=== PATIENT | female | born 1960 | race Caucasian/White ===

== ENCOUNTER 2016-07-21 06:44 | Emergency (ER) ==
[2016-07-21] MEDS ORDERED: ASPIRIN PO ONE (08:14)
[2016-07-21] MEDS ORDERED: LEVAQUIN PO ONE (08:29)
[2016-07-21] MEDS ORDERED: DUONEB (A & A) INH ONE (08:29)
--- NOTE | 2016-07-21 08:29 | EKG Report ---
Test Performed on : 07/21/2016 06:54:36 AM Test Reason : sob Blood Pressure : / mmHG Vent. Rate : 077 BPM Atrial Rate : 077 BPM P-R Int : 140 ms QRS Dur : 096 ms QT Int : 474 ms P-R-T Axes : 062 030 064 degrees QTc Int : 536 ms Normal sinus rhythm. with sinus arrhythmia. Possible Left atrial enlargement Prolonged QT Abnormal ECG When compared with ECG of 26-MAY-2016 13:14, QT has lengthened Unconfirmed Result
--- NOTE | 2016-07-21 08:35 | PROVIDER DOCUMENTATION ---
HPI-Respiratory General - General Chief Complaint: Shortness of Breath Stated Complaint: COPD,CANT BREATHE Time Seen by Provider: 07/21/16 08:09 Source: patient Allergies/Adverse Reactions: Patient Allergies Allergy/AdvReac Type Severity Reaction Status Date / Time No Known Allergies Allergy Verified 07/21/16 06:54 Home Medications: Home Medication List Medication Instructions Recorded Confirmed Last Taken Type Hydralazine [Apresoline] 50 mg PO Q8HR #90 tablet 09/26/15 06/10/16 06/10/16 09: 00 Rx Methadone 80 mg PO DAILY 05/26/16 06/10/16 06/10/16 06:00 History Sodium Bicarbonate 650 mg PO BID #60 tablet 05/30/16 06/10/16 06/06/16 09:00 Rx Hydrocortisone [Cortef] 10 mg PO QHS #30 tablet 06/04/16 06/10/16 06/09/16 21: 00 Rx Albuterol Sulfate Inhaler 2 puff INH Q6H PRN PRN #1 inhaler 06/10/16 Unknown Rx [Ventolin Hfa] Furosemide [Lasix] 40 mg PO DAILY 06/10/16 06/10/16 06/10/16 09:00 History Guaifenesin [Robitussin] 10 ml PO Q4H PRN PRN #1 bottle 07/21/16 Unknown Rx Sulfamethoxazole/Trimethoprim 1 each PO BID #14 tablet 07/21/16 Unknown Rx [Bactrim Ds Tablet] - History of Present Illness-Resp Nature of Presenting Problem: 56 year old copd'er presents complaining of dyspnea and productive cough for 1 day. denies chest pain or fever. denies any other complaints Quality of Pain: reports: none Severity in ED: reports: mild Onset/Duration: reports: 1 week ago Timing: reports: still present Cough Quality/Degree: reports: productive cough Episode Frequency: frequent episodes Current Respiratory Medication Therapy: Initiated albuterol/atrovent inhale Modifying Factors: improves with: nothing Associated Symptoms: reports: cough, short of breath Similar Symptoms Previously?: Yes Recently seen or treated by another doctor?: Yes Review of Systems - Adult - REVIEW OF SYSTEMS - ADULT Constitutional: reports: see HPI Eyes: reports: no symptoms reported Ears, Nose, Mouth & Throat: reports: no symptoms reported Cardiovascular: reports: no symptoms reported Respiratory: reports: see HPI, chronic cough, cough, dyspnea on exertion, excessive sputum production, shortness of breath Gastrointestinal: reports: no symptoms reported Genitourinary: reports: no symptoms reported Musculoskeletal: reports: no symptoms reported Integumentary: reports: no symptoms reported Neurological: reports: no symptoms reported Psychiatric: reports: no symptoms reported Endocrine: reports: no symptoms reported Hematologic/Lymphatic: reports: no symptoms reported Allergic/Immunologic: reports: no symptoms reported All Other Systems: Reviewed and Negative Past History - Adult - PAST MEDICAL HISTORY-ADULT Review of Records: reports: Old Records Reviewed, Nursing Assessment Review, Medications Reviewed, Social history reviewed & non-contributory. Major Childhood Illnesses: reports: denies history. denies: history unknown, Diptheria, Pneumococcal Disease, Polio, Rotavirus, Tetanus, Varicella, Mumps, Rubella, Hepatitis A, Hepatitis B, Hib, Influenza, Measles, Pertussis, other Cardiovascular: reports: cardiac disease, CAD, HTN, hyperlipidemia, [place]. denies : denies history, A-Fib, angina, aortic disease, arrhythmia, blood clots, congenital heart disease, CHF, heart valve problem, murmur, PAD, palpitations, pacemaker, pericardial disease, PVD, other Respiratory: reports: denies history, COPD Gastrointestinal: reports: denies history Obstetrical/Gynecological: reports: denies history Genitourinary: reports: kidney disease Musculoskeletal: reports: chronic pain (back) Neurological: reports: Seizures/Epilepsy Endocrine/Immune: reports: denies history Other Conditions: reports: denies history - PRIOR SURGERIES/PROCEDURES Surgical/Procedure History: reports: cardiac stent, BTL, tonsillectomy, orthopedic (extremity) - IMMUNIZATION STATUS Childhood Immunizations: See Nurse Assessment Flu Vaccine: See Nurse Assessment - FAMILY HISTORY Family History: reviewed, not pertinent Physical Exam-General - PHYSICAL EXAM-ADULT Initial Vital Signs Reviewed: Yes - CONSTITUTIONAL General Appearance: appears well - EYES Eyes: PERRL/EOMI - HEAD, EARS, NOSE, MOUTH & THROAT HENMT: normocephalic/atraumatic - NECK Neck: non-tender, full range of motion - RESPIRATORY Respiratory: chest non-tender, lungs clear, normal breath sounds - CARDIOVASCULAR Cardiovascular: normal peripheral pulses, regular rate, rhythm, no edema - CHEST (BREASTS) Chest/Breast: deferred - GASTROINTESTINAL (ABDOMEN) Abdominal Exam: normal bowel sounds - GENITOURINARY Female Genitalia/Pelvic Exam: deferred - LYMPHATIC Lymphatic: no adenopathy, axilla node tender - MUSCULOSKELETAL Back Exam: normal inspection - SKIN Integumentary: normal color, normal turgor, warm/dry - NEUROLOGIC 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, grossly normal, no motor/sensory deficits - PSYCHIATRIC Psych/Mental Status: normal mood/affect Departure - Departure Time of Disposition Order: 08:40 DIAGNOSIS: COPD exacerbation Disposition: HOME 01 Certified Medical Emergency: Emergent Condition: Stable Prescriptions: Sulfamethoxazole/Trimethoprim [Bactrim Ds Tablet] 1 each PO BID #14 tablet Guaifenesin [Robitussin] 10 ml PO Q4H PRN PRN #1 bottle PRN Reason: Cough Attestation - Scribe Verification/Attestation Scribe:: Bunny Perez I Scribe documention review:: This chart was documented by a scribe and accurately reflects the service the provider performed and the decisions made by the provider. - Physician/ MRALEEN Attestation Patient care was provided by Advanced Practice Provider:: Yes Advanced Practice Provider documentation review:: The Mid-level provider documentation, treatment plan and medical decision making was reviewed by the physician who agrees with all treatment and medical decision making by the MLP. The physician spent face to face time with patient:: Yes Advanced Practice Provider documentation review:: The physician spent face to face time with this patient and agrees with all MLP documentation, treatment, and medical decision making by the MLP. See provider notes for further information. Physician Attestation - Physician Attestation I, the provider, attest to the following statement:: Bunny Perez Physician documentation Attestation:: This documentation recorded by the scribe accurately reflects the service I personally performed and the decisions made by me.
[2016-07-21 09:18] LABS: MANUAL DIFF NEEDED? NO
[2016-07-21 09:22] LABS: BASO% 0.5 % (0.0-0.8); EOS# 0.16 X1000 (0.0-0.7); EOS% 3.6 % (0.0-10.0); HEMATOCRIT 36.2 % (37.0-47.0); HEMOGLOBIN 11.9 g/dL (12.0-16.0); LYMPH# 0.96 X1000 (1.2-3.4); LYMPH% 21.7 % (20.5-51.1); MCH 28.4 PG (27-31); MCHC 32.9 g/dL (33-37); MCV 86.4 FL (81-99); MONO# 0.35 X1000 (0.11-0.59); MONO% 7.9 % (1.7-9.3); MPV 12.3 FL (7.4-10.4); NEUT% 66.3 % (42.2-75.2); PLT 101 X1000 (130-400); RBC 4.19 XMIL (4.2-5.4)
--- NOTE | 2016-07-21 09:24 | Diag Imaging Result Document ---
PROCEDURE NAME: CHEST-2 VIEWS - 07/21/2016 FRONTAL AND LATERAL CHEST, TWO VIEWS: COMPARISON: 06/10/2016. FINDINGS: No definite change in the size of the nodule in the mid right lung. The heart is not enlarged. The vessels are not distended. I believe there are trace effusions. No consolidation. Minimal increased markings in the periphery of the right lung inferiorly. Mild scoliosis. IMPRESSION: 1. Stable nodule in the mid right lung. 2. Likely atelectasis although there could be a small underlying infiltrate in the right base.
[2016-07-21] MEDS ORDERED: ATROVENT HFA INH PRN (09:53)
[2016-07-21 10:08] VITALS: BP 202/95
== END 2016-07-21 10:08 | disposition home or self-care (01) ==
LOC: ED 06:44
DX: J44.1 Chronic obstructive pulmonary disease with (acute) exacerbation (principal); R06.02 Shortness of breath; R06.00 Dyspnea, unspecified; R05 Cough; R09.3 Abnormal sputum; I25.10 Atherosclerotic heart disease of native coronary artery without angina pectoris; I10 Essential (primary) hypertension; E78.5 Hyperlipidemia, unspecified; I25.2 Old myocardial infarction; G89.29 Other chronic pain; M54.9 Dorsalgia, unspecified; Z79.899 Other long term (current) drug therapy; Z95.5 Presence of coronary angioplasty implant and graft
CPT/HCPCS: 71020; 82550; 84484; 85025; 93005; 94640; 99283

== ENCOUNTER 2017-01-28 19:38 | Inpatient (IN) ==
[2017-01-28 20:29] LABS: MANUAL DIFF NEEDED? NO
[2017-01-28 20:33] LABS: BASO% 0.3 % (0.0-0.8); EOS# 0.33 X1000 (0.0-0.7); EOS% 4.8 % (0.0-10.0); HEMATOCRIT 38.8 % (37.0-47.0); HEMOGLOBIN 12.8 g/dL (12.0-16.0); IMM GRAN# 0.02 X1000 (0.0-0.04); IMM GRAN% 0.3 % (0.0-0.5); LYMPH# 1.51 X1000 (1.2-3.4); LYMPH% 21.9 % (20.5-51.1); MCH 28.6 PG (27-31); MCV 86.6 FL (81-99); MONO# 0.76 X1000 (0.11-0.59); MPV 12.2 FL (7.4-10.4); NEUT% 61.7 % (42.2-75.2); PLT 132 X1000 (130-400); RBC 4.48 XMIL (4.2-5.4)
[2017-01-28 20:37] LABS: URINE CULTURE NEEDED? NO; URINE MICRO REVIEW NEEDED? NO; URINE SOURCE CLEAN CATCH
[2017-01-28 20:40] LABS: BILIRUBIN URINE NEGATIVE (NEGATIVE); BLOOD URINE NEGATIVE (NEGATIVE); COLOR YELLOW; GLUCOSE URINE NEGATIVE (NEGATIVE); LEUKOCYTES URINE NEGATIVE (NEGATIVE); NITRITE URINE NEGATIVE (NEGATIVE); PROTEIN URINE TRACE mg/dL (NEGATIVE); SP GRAVITY URINE 1.002; TURBIDITY URINE CLEAR (CLEAR); UR EPITHELIAL CELLS <10 /HPF (<10); URINE BACTERIA NEGATIVE /HPF; URINE RBC <10 /HPF (<10); URINE WBC <10 /HPF (<10); UROBILINOGEN URINE NORMAL (NORMAL)
--- NOTE | 2017-01-28 21:00 | PROVIDER DOCUMENTATION ---
HPI-Respiratory General - General Chief Complaint: General Adult Stated Complaint: POSS. PNEUMONIA, BILAT. LEG EDEMA Time Seen by Provider: 01/28/17 20:04 Source: patient Allergies/Adverse Reactions: Patient Allergies Allergy/AdvReac Type Severity Reaction Status Date / Time No Known Allergies Allergy Verified 10/27/16 17:28 Home Medications: Home Medication List Medication Instructions Recorded Confirmed Last Taken Type Methadone 150 mg PO DAILY 05/26/16 01/28/17 01/27/17 History Amlodipine [Norvasc] 10 mg PO DAILY 10/27/16 01/28/17 01/27/17 History Clonidine [Catapres] 0.2 mg PO TID 10/27/16 01/28/17 01/27/17 History Furosemide 40 mg PO PRN PRN 10/27/16 01/28/17 01/27/17 History Hydralazine [Apresoline] 50 mg PO Q6HR 10/27/16 01/28/17 01/27/17 History Lisinopril 10 mg PO BID 10/27/16 01/28/17 01/27/17 History - History of Present Illness-Resp Nature of Presenting Problem: 56 yr old female, comes today c/o SOB, worse with exertion. SOB started 3-4 days ago, has been coughing more than usual, increased non purulent sputum production. Pt states that for the last 2 weeks her legs have been getting more swollen than usual. No other particular complaint. Review of Systems - Adult - REVIEW OF SYSTEMS - ADULT Constitutional: reports: see HPI Eyes: reports: no symptoms reported Ears, Nose, Mouth & Throat: reports: no symptoms reported Cardiovascular: reports: see HPI Respiratory: reports: see HPI Gastrointestinal: reports: no symptoms reported Integumentary: reports: no symptoms reported Past History - Adult - PAST MEDICAL HISTORY-ADULT Review of Records: reports: Nursing Assessment Review Major Childhood Illnesses: denies: history unknown, Diptheria, Mumps, Rubella, Hepatitis A, Hepatitis B, Hib, Influenza, Measles, Pertussis, Pneumococcal Disease, Polio, Rotavirus, Tetanus, Varicella, other Cardiovascular: reports: cardiac disease, CAD, HTN, hyperlipidemia, [place]. denies : denies history, A-Fib, angina, aortic disease, arrhythmia, blood clots, congenital heart disease, CHF, heart valve problem, murmur, PAD, palpitations, pacemaker, pericardial disease, PVD, other Respiratory: reports: COPD Gastrointestinal: reports: denies history Obstetrical/Gynecological: reports: denies history Genitourinary: reports: kidney disease Musculoskeletal: reports: chronic pain (back) Neurological: reports: Seizures/Epilepsy Endocrine/Immune: reports: denies history Other Conditions: reports: denies history - PRIOR SURGERIES/PROCEDURES Surgical/Procedure History: reports: cardiac stent, BTL, tonsillectomy, orthopedic (extremity) - IMMUNIZATION STATUS Childhood Immunizations: See Nurse Assessment Flu Vaccine: See Nurse Assessment - FAMILY HISTORY Family History: reviewed, not pertinent Physical Exam-General - CONSTITUTIONAL General Appearance: mild distress - EYES Eyes: PERRL/EOMI - HEAD, EARS, NOSE, MOUTH & THROAT HENMT: normocephalic/atraumatic, moist mucous membranes - NECK Neck: non-tender - RESPIRATORY Respiratory: chest non-tender, crackles, rhonchi - CARDIOVASCULAR Cardiovascular: regular rate, rhythm, other (Peripheral edema noted.) - GASTROINTESTINAL (ABDOMEN) Abdominal Exam: non tender, soft, no organomegaly - LYMPHATIC Lymphatic: no adenopathy - MUSCULOSKELETAL Back Exam: normal inspection Extremity: pedal edema - SKIN Integumentary: normal color, normal turgor - NEUROLOGIC Neurologic: grossly normal, no motor/sensory deficits - PSYCHIATRIC Psych/Mental Status: normal mood/affect, normal thought content, oriented x 3 Progress - PLAN OF CARE/RESULTS Progress/Plan/Lab Results: Vital Signs - 8 hr 01/28/17 19:45 01/28/17 22:11 Temperature 97.7 F Pulse Rate 64 63 Respiratory Rate 20 Blood Pressure 130/65 117/72 O2 Sat by Pulse Oximetry 100 96 Laboratory Results - last 24 hr 01/28/17 01/28/17 01/28/17 20:10 20:10 20:10 WBC 6.88 RBC 4.48 Hgb 12.8 Hct 38.8 MCV 86.6 MCH 28.6 MCHC 33.0 RDW Std Deviation 16.3 H Plt Count 132 MPV 12.2 H Immature Gran % (Auto) 0.3 Neut % (Auto) 61.7 Lymph % (Auto) 21.9 [place] % (Auto) 11.0 H Eos % (Auto) 4.8 Baso % (Auto) 0.3 Immature Gran # (Auto) 0.02 Neut # (Auto) 4.24 Lymph # (Auto) 1.51 [place] # (Auto) 0.76 H Eos # (Auto) 0.33 Baso # (Auto) 0.02 Sodium 143 Potassium 4.7 Chloride 106 Carbon Dioxide 18 L Anion Gap 19 BUN 42 H Creatinine 4.1 H Estimated GFR/1.73 m2 11 BUN/Creatinine Ratio 10 Glucose 94 Calculated Osmolality 295 Calcium 8.0 L Total Bilirubin 0.43 AST 33 H ALT 9 L Alkaline Phosphatase 104 Zbf-F-Kcfeeltfbqt Pept 1604 H Total Protein 6.3 Albumin 4.0 Globulin 2.3 Albumin/Globulin Ratio 1.7 Urine Source Urine Color Urine Turbidity Urine pH Ur Specific Sheridan Urine Protein Ur Glucose (Stick) Ur Ketones (Stick) Urine Blood Urine Nitrite Urine Bilirubin Urobilinogen Dipstick Urine Leukocytes Urine WBC (Auto) Urine RBC (Auto) U Epithel Cells (Auto) Urine Bacteria (Auto) 01/28/17 20:25 WBC RBC Hgb Hct MCV MCH MCHC RDW Std Deviation Plt Count MPV Immature Gran % (Auto) Neut % (Auto) Lymph % (Auto) [place] % (Auto) Eos % (Auto) Baso % (Auto) Immature Gran # (Auto) Neut # (Auto) Lymph # (Auto) [place] # (Auto) Eos # (Auto) Baso # (Auto) Sodium Potassium Chloride Carbon Dioxide Anion Gap BUN Creatinine Estimated GFR/1.73 m2 BUN/Creatinine Ratio Glucose Calculated Osmolality Calcium Total Bilirubin AST ALT Alkaline Phosphatase Pus-W-Kycptdskovu Pept Total Protein Albumin Globulin Albumin/Globulin Ratio Urine Source CLEAN CATCH Urine Color YELLOW Urine Turbidity CLEAR Urine pH 5.0 Ur Specific [place] 1.002 Urine Protein TRACE A Ur Glucose (Stick) NEGATIVE Ur Ketones (Stick) NEGATIVE Urine Blood NEGATIVE Urine Nitrite NEGATIVE Urine Bilirubin NEGATIVE Urobilinogen Dipstick NORMAL Urine Leukocytes NEGATIVE Urine WBC (Auto) <10 Urine RBC (Auto) <10 U Epithel Cells (Auto) <10 Urine Bacteria (Auto) NEGATIVE Orders Category Date Time Status cxr [CHEST-PORTABLE] [RAD] Stat Exams 01/28/17 20:11 Completed BNP [PRO B-NATRIURETIC PEPTIDE] Stat Lab 01/28/17 20:10 Completed CBC WITH DIFF [HEME] Stat Lab 01/28/17 20:10 Completed CMP [COMPREHENSIVE METABOLIC PANEL] [CHEM] Stat Lab 01/28/17 20:10 Completed UA NIMS W/REFLEX CULT [URINALYSIS] Stat Lab 01/28/17 20:25 Completed Oxygen Device Stat Oth 01/28/17 20:22 Active EKG [EKG] Stat Ther 01/28/17 19:49 Ordered Patient does have CKD and looks to have decompensated CHF with BNP elevated to around 1600. I have talked with Dr. Johnson the hospitalist and he kindly agrees to admit. Dr. Last is her Size Painter who may be called tomorrow by the Hospitalist. Result Diagrams: 01/28/17 20:10 01/28/17 20:10 Departure - Departure Date of Disposition Decision: 01/28/17 Time of Disposition Decision: 22:41 DIAGNOSIS: CHF (congestive heart failure), CKD (chronic kidney disease), COPD (chronic obstructive pulmonary disease) with emphysema Disposition: ADMITTED INPATIENT 09 Certified Medical Emergency: Emergent Condition: Stable Referrals and Follow-Ups: None,PCP [Primary Care Provider] - Discharge Education: Smoking, You Can Quit, [id number] - Critical Care Note This patient required my direct & personal management of CC.: No Attestation - Physician/ MARLEEN Attestation Patient care was provided by Advanced Practice Provider:: No The physician spent face to face time with patient:: Yes Advanced Practice Provider documentation review:: Supervising physician onsite and consulted in the evaluation and care of this patient. The physician did have a face to face encounter with the patient.
[2017-01-28 21:15] LABS: POTASSIUM 4.7 mmol/L (3.5-5.1); TOTAL BILIRUBIN 0.43 mg/dL (0.20-1.00); TOTAL PROTEIN 6.3 g/dL (6.3-8.3)
--- NOTE | 2017-01-28 21:31 | Diag Imaging Result Doc PS360 ---
EXAM: CHEST-PORTABLE INDICATION: sob TECHNIQUE: One view COMPARISON: 10/27/2016 FINDINGS: There is a stable calcified granuloma in the right midlung zone peripherally. The lungs are grossly clear, otherwise. There is no discrete pleural fluid collection or pneumothorax. The cardiomediastinal silhouette and central vasculature are grossly unremarkable. IMPRESSION: No evidence of acute pathology by plain radiograph. Electronically signed by Olivier Andrews 01/28/2017 9:28 PM
[2017-01-28] MEDS ORDERED: MORPHINE IV PRN (23:17)
[2017-01-29] MEDS ORDERED: DUONEB (A & A) INH PRN (00:12)
[2017-01-29] MEDS ORDERED: LASIX PO PRN (00:12)
--- NOTE | 2017-01-29 00:47 | HISTORY AND PHYSICAL ---
PRIMARY CARE PHYSICIAN: None. CHIEF COMPLAINT: Shortness of breath x2 days. HISTORY OF PRESENTING ILLNESS: A 56-year-old female with a history of chronic kidney disease, hypertension, COPD and cornary disease who had presented to the emergency department with 2 days history of worsening shortness of breath. The patient states that she could not catch her breath at times and she seemed to be worsening. She was evaluated in the emergency department. She was somewhat dyspneic and due to her presenting symptoms it was thought that she would need admission for further management. At the time of my examination, she had denied any headache, fever, chills, chest pain, hemoptysis, melena, but complained of shortness of breath and her leg swelling. PAST MEDICAL HISTORY: Chronic kidney disease, hypertension, COPD, CVA, coronary artery disease. PAST SURGICAL HISTORY: Coronary stent, left knee surgery. ALLERGIES: No known drug allergies. CURRENT MEDICATIONS: As listed in the medication reconciliation sheet. SOCIAL HISTORY: An 80 pack-year history of smoking. Denies any history of alcohol or illicit drug use. FAMILY HISTORY: Positive for coronary artery disease in father. REVIEW OF SYSTEMS: Twelve point systems as listed in HPI. Other systems negative. PHYSICAL EXAMINATION: GENERAL: Cooperative, friendly female. She is resting more comfortably now. VITAL SIGNS: Temperature 97.7 degrees, pulse 64, respirations 20, blood pressure 130/65. HEENT: Atraumatic, normocephalic. Extraocular movements intact. PERRLA. NECK: No masses. CHEST: Bibasilar rales. CARDIOVASCULAR: Regular rate and rhythm. S1, S2. ABDOMEN: Soft, obese, positive bowel sounds. EXTREMITIES: +1 edema. NEUROLOGIC: She is awake, alert, oriented x3. GENITOURINARY: No bladder distention. SKIN: Warm. LABORATORIES AND STUDIES: UA is nitrite negative. Sodium 143, potassium 4.7, chloride 106, CO2 is 18, BUN is 42, creatinine 4.1, glucose is 94. ProBNP is 1604. WBC 6.88, hemoglobin 12.8, hematocrit 38.8, platelets are 132,000. ASSESSMENT: This is a 56-year-old female with a history of chronic kidney disease, hypertension, chronic obstructive pulmonary disease and coronary artery disease, who had presented to the emergency department with 2 days history of worsening shortness of breath. She was evaluated in the emergency department and she was moderately dyspneic and due to her presenting symptoms she will need admission for further management. 1. Suspected acute chronic obstructive pulmonary disease exacerbation. 2. Ongoing tobacco abuse. 3. Chronic kidney disease. 4. Hypertension. PLAN: 1. We will admit patient to medical floor with telemetry. 2. We will start patient on IV Solu-Medrol, IV antibiotics and DuoNebs. 3. We will consult Nephrology for her renal failure. 4. Restart her home medications. 5. Monitor blood pressure closely. 6. We will put patient on DVT prophylaxis with SCD. 7. We will continue to follow and reassess. cc: Matheus Johnson MD MTDD
[2017-01-29] MEDS: LEVAQUIN 500 MG/D5W 500 MG/100 ML IVPB IV SCH (01:20)
[2017-01-29] MEDS: APRESOLINE PO SCH ×4 (01:20→20:18)
[2017-01-29] MEDS: SOLU-MEDROL IV SCH ×3 (01:20→16:00)
[2017-01-29 07:21] LABS: BASO% 0.2 % (0.0-0.8); EOS# 0.12 X1000 (0.0-0.7); EOS% 2.1 % (0.0-10.0); HEMATOCRIT 38.4 % (37.0-47.0); HEMOGLOBIN 12.5 g/dL (12.0-16.0); LYMPH# 0.56 X1000 (1.2-3.4); LYMPH% 9.7 % (20.5-51.1); MANUAL DIFF NEEDED? YES; MCH 28.1 PG (27-31); MCHC 32.6 g/dL (33-37); MCV 86.3 FL (81-99); MONO# 0.14 X1000 (0.11-0.59); MONO% 2.4 % (1.7-9.3); MPV 11.9 FL (7.4-10.4); NEUT% 85.6 % (42.2-75.2); PLT 108 X1000 (130-400); RBC 4.45 XMIL (4.2-5.4)
[2017-01-29 07:34] LABS: CALCIUM 7.6 mg/dL (8.8-10.2); POTASSIUM 4.1 mmol/L (3.5-5.1)
[2017-01-29] MEDS: CATAPRES PO SCH ×3 (07:59→20:18)
[2017-01-29 08:00] LABS: EOS 2 % (1-10); LARGE PLATELETS OCCASIONAL; LYMPHS 8 % (21-51)
[2017-01-29] MEDS: PRINIVIL PO SCH ×2 (08:00→20:18)
[2017-01-29] MEDS: NORVASC PO SCH (08:00)
--- NOTE | 2017-01-29 14:20 | Diag Imaging Result Doc PS360 ---
EXAM: CT THORAX W/O CONTRAST INDICATION: pna suspected TECHNIQUE: Dose reduction protocol was used. COMPARISON: 05/28/2016 FINDINGS: There is a large calcified granuloma in the right upper lobe, stable. There are a few other tiny noncalcified nodules bilaterally that are stable and statistically likely represent noncalcified granulomata. At the lung bases, there is mild scarring and/or subsegmental atelectasis. Superimposed infection is possible at the right lung base. The lungs are grossly clear, otherwise. There is no pleural fluid collection and no pneumothorax. The heart is not enlarged. There are calcified right hilar lymph nodes indicating prior granulomatous disease. There is no evidence of significant lymphadenopathy, otherwise. Limited views of the upper abdomen reveal a prominent spleen. There is a calcified stone in the lumen of the gallbladder. The gallbladder is contracted. The gallbladder wall appears thickened but this is probably, at least in part, due to contraction. Please correlate clinically. IMPRESSION: 1.Mild subsegmental atelectasis and/or scarring at the lung bases with possible superimposed infection at the right lung base. 2.Thickened gallbladder wall with a luminal gallstone. However, this thickening may be due to gallbladder contraction. Please correlate clinically. 3.Splenomegaly. 4.Other incidental/nonacute findings detailed above. Electronically signed by Olivier Andrews 01/29/2017 2:18 PM
[2017-01-29] MEDS: MORPHINE IV PRN ×2 (14:31→20:18)
[2017-01-29] MEDS: DUONEB (A & A) INH SCH ×3 (15:29→22:55)
--- NOTE | 2017-01-29 15:30 | PROGRESS NOTE ---
DATE: 01/29/2017 SUBJECTIVE: Patient reports feeling better. Reports still having some shortness of breath. OBJECTIVE: Vital signs: Temperature 97.7 degrees, heart rate 64, respiratory rate 20, blood pressure 132/72, O2 saturation 99% L nasal cannula. General: This is a 56- year-old female lying in bed, in no acute distress. HEENT: Head is normocephalic, atraumatic. Neck: Supple. No JVD noted. No carotid bruit. No lymphadenopathy. Cardiovascular: S1, S2 heard. No murmurs, gallops, or rubs. Regular rate and rhythm. Respiratory: Clear bilaterally. There are some bibasilar rales. Patient is not using any accessory muscles or having work of breathing. Abdomen: Soft, obese, nontender to palpation. Bowel sounds present. No organomegaly. Extremities: No clubbing, cyanosis there is 1+ pitting edema in both lower extremities. Peripheral pulses present in both legs. Neurological: Patient is alert and oriented x3. Able to move 4 extremities. LABORATORY DATA: The CBC is remarkable for platelets 102,000 and BMP shows creatinine 3.4. ASSESSMENT AND PLAN: 1. Chronic obstructive pulmonary disease exacerbation. Patient reports feeling a little bit better, although, mildly short of breath. Currently this patient is on breathing treatments with DuoNeb every 4 hours. At this point, we are going to continue with the same management. Because of history of smoking for many years. I prefer to go ahead and do a CT of the chest without contrast to see if there is any lung mass. 2. Acute on chronic kidney disease. The patient reports that she has been followed by Dr. Last. I do not know the baseline creatinine, but from yesterday when she was admitted, creatinine was 4.1, today it is 3.4. We are going to continue with the same management. 3. Hypertension blood pressure is under control. We will continue with the same management. 4. Ongoing tobacco abuse. Patient has been explained the long-term consequence of smoking. Patient acknowledged understanding. cc: Pravin Galloway MD [facility]
[2017-01-30] MEDS: LEVAQUIN 500 MG/D5W 500 MG/100 ML IVPB IV SCH (01:24)
[2017-01-30] MEDS: SOLU-MEDROL IV SCH ×3 (01:24→15:16)
[2017-01-30] MEDS: APRESOLINE PO SCH ×4 (01:25→20:05)
[2017-01-30] MEDS: DUONEB (A & A) INH SCH ×6 (03:20→23:35)
--- NOTE | 2017-01-30 06:17 | EKG Report ---
Test Performed on : 01/28/2017 7:56:00 PM Test Reason : edema in legs/sob Blood Pressure : / mmHG Vent. Rate : 060 BPM Atrial Rate : 060 BPM P-R Int : 134 ms QRS Dur : 104 ms QT Int : 470 ms P-R-T Axes : 000 117 136 degrees QTc Int : 470 ms Normal sinus rhythm. Right axis deviation Abnormal ECG When compared with ECG of 27-OCT-2016 17:59, Sinus rhythm. has replaced Junctional rhythm. QRS axis shifted right Nonspecific T wave abnormality now evident in Inferior leads Nonspecific T wave abnormality now evident in Lateral leads Unconfirmed Result
[2017-01-30 06:41] LABS: HEMATOCRIT 38.3 % (37.0-47.0); HEMOGLOBIN 12.7 g/dL (12.0-16.0); IMM GRAN# 0.02 X1000 (0.0-0.04); IMM GRAN% 0.2 % (0.0-0.5); LYMPH# 0.42 X1000 (1.2-3.4); MANUAL DIFF NEEDED? YES; MCHC 33.2 g/dL (33-37); MCV 84.5 FL (81-99); MONO# 0.21 X1000 (0.11-0.59); MONO% 2.5 % (1.7-9.3); MPV 11.7 FL (7.4-10.4); NEUT% 92.3 % (42.2-75.2); PLT 108 X1000 (130-400); RBC 4.53 XMIL (4.2-5.4)
[2017-01-30 07:03] LABS: CALCIUM 8.1 mg/dL (8.8-10.2); POTASSIUM 4.3 mmol/L (3.5-5.1)
[2017-01-30 07:17] LABS: BANDS 2 % (0-1); LYMPHS 2 % (21-51); MONO 2 % (1-9)
[2017-01-30] MEDS: NORVASC PO SCH (08:16)
[2017-01-30] MEDS: CATAPRES PO SCH ×3 (08:16→20:05)
[2017-01-30] MEDS: PRINIVIL PO SCH ×2 (08:16→20:05)
[2017-01-30] MEDS: MORPHINE IV PRN (08:22)
[2017-01-30] MEDS: ROCEPHIN 1 GM in NS 50 ML IV SCH (11:49)
--- NOTE | 2017-01-30 14:54 | PROGRESS NOTE ---
DATE: 01/30/2017 SUBJECTIVE: Patient reports she is still feeling mildly short of breath. Denies any fever or chills. OBJECTIVE: Vital Signs: Temperature 97.6 degrees, heart rate 62, respiratory rate 17, blood pressure 1 /57, O2 saturation 93% 2 L nasal cannula. General Examination: This is a 56- year-old, female lying in bed, in no acute distress, looking older than her age. HEENT: Head is normocephalic, atraumatic. Neck: Supple. No JVD noted. No carotid bruits. Cardiovascular: S1, S2 heard. No murmurs, gallops, or rubs. Regular rate and rhythm. Respiratory: Clear bilaterally to auscultation. Some bibasilar crackles. Patient is not using any accessory muscles or having work of breathing. Abdomen: Soft, nontender to palpation. Bowel sounds present. No organomegaly. Extremities: No clubbing, cyanosis, or edema. Peripheral pulses present in both legs. Neurological: Patient alert and oriented x3. Moves 4 extremities. LABORATORY DATA: Reviewed. ASSESSMENT AND PLAN: 1. Chronic obstructive pulmonary disease exacerbation. Patient is feeling a little bit short of breath and is still requiring 3 L of oxygen by nasal cannula. At this point, we are going to continue with DuoNeb every 4 hours. We have checked chest CT which basically showed possible superimposed infection in the right lung base. Patient currently is on ceftriaxone and levofloxacin. We are going to continue with the same management. We are going to continue with breathing treatments as well. 2. Acute on chronic kidney disease. Creatinine is 3.4. Evaluated by Dr. Last. Apparently as per patient, he mentioned to her that her creatinine is within her baseline. We will continue to BMP. 3. Hypertension. Blood pressure is under control. We will continue with the same management. 4. Ongoing tobacco abuse. Patient advised to stop smoking for more than 3 minutes. cc: Pravin Galloway MD
[2017-01-30] MEDS ORDERED: MORPHINE IV PRN (15:31)
--- NOTE | 2017-01-30 16:15 | CONSULTATION ---
DATE OF CONSULTATION: 01/30/2017 REASON FOR ADMISSION: Shortness of breath x2 days. REASON FOR CONSULT: Acute kidney injury on chronic kidney disease stage 4 and assistance with medical management. HISTORY OF PRESENT ILLNESS: Ms. Mead is a 56-year-old white female who is known to our outpatient services for chronic kidney disease stage 4b. Her baseline creatinine was 2.9 when last seen in June of 2016. This has been stable with no changes. She is due to be seen in our office in the next 2 weeks. Patient states that she has a history of hypertension and COPD. She presented to the emergency department after having 2 days of worsening shortness of breath. She denies chest pain. She was dyspneic with exertion and at rest. There were no alleviating factors. She did deny fever or chills. No nausea, vomiting, no diarrhea. No hemoptysis or melena. She does have some lower extremity leg swelling. PAST MEDICAL HISTORY: Chronic kidney disease stage 4. Hypertension. COPD. CVA. Coronary artery disease. Anemia of chronic disease. Osteodystrophy of chronic disease. PAST SURGICAL HISTORY: Coronary artery stents. Left knee surgery. SOCIAL HISTORY: She is an 13-xwnn-kgu-year history of smoking. SHE continues to smoke at this time. Denies any alcohol or illicit drug use. She lives alone with family who are attentive to her care. FAMILY HISTORY: Noncontributory. ALLERGIES: No known drug allergies. HOME MEDICATIONS: Methadone, lisinopril, furosemide, Norvasc, Catapres, Apresoline. PHYSICAL EXAMINATION: Vital signs: Her most recent vital signs, temperature 97.5 degrees, blood pressure 135/69, heart rate 65, respirations 20. She is on 3 L nasal cannula. Last recorded saturation 96%. She has had 882 and 502 out per void. General: This is a 56- year-old white female. She is sitting up in bed. She is receiving a breathing treatment. Skin: Warm and dry. She is in no acute distress. HEENT: Normocephalic, atraumatic. Conjunctivae pink. She has YAHIR. Mucous membranes are dry. Neck: Supple. Trachea midline. No JVD. Cardiovascular: Regular rate and rhythm without murmur or gallop. Lungs: Clear to auscultation anterior. She has diminished breath sounds to the bases. She remains on O2. Abdomen: Round , soft, nontender. Positive bowel sounds. Genitourinary: Not inspected. Adequate void. Extremities: She continues with 1+ lower extremity edema. No clubbing or cyanosis. Neurological : She is alert and oriented x3. LABORATORIES: Sodium 136, potassium 4.3, chloride 103, CO2 19, BUN 51, creatinine 3.4, glucose 150. Anion gap 14, calcium 8.1. White count 8.41, hemoglobin 12.7, hematocrit 38.2, with a platelet count of 108,000. ASSESSMENT AND PLAN: 1. Acute kidney injury on chronic kidney disease stage 4b. The patient's baseline creatinine is 2.9. Creatinine today is at 3.4, BUN of 51. More than likely, this is secondary to her exacerbation of her COPD. She is breathing better at this time. No indications for intervention. 2. Electrolytes. These are stable. 3. Acid-base balance. This remains stable with new-onset metabolic acidosis. We will continue to monitor. 4. Anemia. This is at target. 5. COPD exacerbation. Patient continues on breathing treatments per primary care. I would to thank you for allowing us to follow with this patient. Dictated by DUNCAN Diaz for Jaguar Last MD Patient seen, data reviewed, discussed with Florentin Hutton on 01/30/17. I agree with the above assessment and plan of care. cc: DUNCAN Diaz MD [facility]
[2017-01-30] MEDS ORDERED: METHADONE PO ONE (21:44)
[2017-01-30] MEDS: NICODERM PATCH TD SCH (22:11)
[2017-01-31] MEDS: SOLU-MEDROL IV SCH ×3 (00:46→16:09)
[2017-01-31] MEDS: LEVAQUIN 500 MG/D5W 500 MG/100 ML IVPB IV SCH (02:35)
[2017-01-31] MEDS: APRESOLINE PO SCH ×4 (02:46→21:48)
[2017-01-31] MEDS: DUONEB (A & A) INH SCH ×6 (03:36→23:20)
[2017-01-31 06:43] LABS: EOS# 0.01 X1000 (0.0-0.7); EOS% 0.1 % (0.0-10.0); HEMATOCRIT 39.4 % (37.0-47.0); HEMOGLOBIN 13.1 g/dL (12.0-16.0); LYMPH# 0.46 X1000 (1.2-3.4); LYMPH% 4.2 % (20.5-51.1); MANUAL DIFF NEEDED? YES; MCH 28.2 PG (27-31); MCHC 33.2 g/dL (33-37); MCV 84.9 FL (81-99); MONO# 0.29 X1000 (0.11-0.59); MONO% 2.7 % (1.7-9.3); MPV 12.3 FL (7.4-10.4); PLT 130 X1000 (130-400); RBC 4.64 XMIL (4.2-5.4)
[2017-01-31 06:56] LABS: CALCIUM 7.7 mg/dL (8.8-10.2); POTASSIUM 4.3 mmol/L (3.5-5.1)
[2017-01-31 07:15] LABS: BANDS 1 % (0-1); LYMPHS 8 % (21-51)
[2017-01-31] MEDS: METHADONE PO SCH (08:27)
[2017-01-31] MEDS: NICODERM PATCH TD SCH (08:27)
[2017-01-31] MEDS: CATAPRES PO SCH ×3 (08:27→16:09)
[2017-01-31] MEDS: PRINIVIL PO SCH ×2 (08:27→21:48)
[2017-01-31] MEDS: NORVASC PO SCH (08:27)
[2017-01-31] MEDS ORDERED: NICODERM PATCH TD SCH (09:00)
--- NOTE | 2017-01-31 10:45 | PROGRESS NOTE ---
DATE: 01/31/2017 SUBJECTIVE: This patient states that she is still feeling a little bit short of breath, mostly when she has some physical activity. She denies fever, nausea, vomiting, diarrhea, or constipation. OBJECTIVE: Vital Signs: Temperature 97.4 degrees, pulse 80, respiratory rate 16, blood pressure 135/65, oxygen saturation 96% on 2 L of nasal cannula. HEENT: Head normocephalic. No trauma. PERRLA. Neck: Supple. No JVD. No masses. Central trachea. Chest: Decreased breath sounds globally with prolonged expiratory phase. Scattered wheezing, expiatory as well. Mild rhonchi at the level of the lung bases. Abdomen: Soft, nontender, nondistended. No hepatosplenomegaly. Extremities: No edema. No clubbing. No cyanosis. Neurological Examination: The patient is alert and oriented x3. No focal deficits. Laboratory: WBC 10.9, hemoglobin 13.1, hematocrit 39.4, platelets 130,000. Sodium 139, potassium 4.3, chloride 103, bicarbonate 19, BUN 64, creatinine 3.3, glucose 128, calcium 7.7. ASSESSMENT AND PLAN: 1. Chronic obstructive pulmonary disease exacerbation. This patient is feeling a little bit short of breath. Now, she is requiring 2 L of oxygen instead of 3. She is still getting tired with physical activity. Continue with the same management. 2. Right lower lung pneumonia. Continue with ceftriaxone and levofloxacin. As per the patient, she is not using oxygen at home. 3. Acute on chronic kidney disease. BUN is a little bit worse and creatinine is about the same. Nephrology department is following this patient. We will continue to follow their recommendations. 4. Hypertension, stable. Continue with the same management. 5. Ongoing tobacco abuse. This patient has been highly advised against tobacco abuse. I will continue with daily cessation education. cc: Santino Ayala MD
[2017-01-31] MEDS: ROCEPHIN 1 GM in NS 50 ML IV SCH (11:30)
--- NOTE | 2017-01-31 14:19 | PROGRESS NOTE ---
DATE: 01/31/2017 TIME SEEN: 0840. SUBJECTIVE: Ms. Mead is resting quietly in bed. She denies any pain. No increased work of breathing. She is sitting up eating her breakfast. States that her breathing is doing better. OBJECTIVE: Her most recent vital signs, temperature 97.6 degrees, blood pressure 124/59, heart rate 88, respirations 16. nasal cannula. Last recorded saturation is 96%. She has had 780 in. She has had 0 recorded out. LABS: Sodium 139, potassium chloride 103, CO2 19, BUN 64, creatinine 3.3, glucose 128, anion gap 17, calcium 7.7. White count 10.93, hemoglobin 13.1, hematocrit 39.4 with a platelet count of 130,000. PHYSICAL EXAMINATION: General: This is a 56-year-old white female. She is sitting up in bed. She is in no acute distress. Skin: Warm and dry. HEENT: Normocephalic, atraumatic. Conjunctiva is pale. She has YAHIR. Mucous membranes are moist. Neck: Supple. Trachea midline. No JVD. Cardiovascular: She is regular rate and rhythm. She is without murmur or gallop. Lungs: Clear to auscultation anterior though she does have a congested cough. She remains on O2. Equal excursion. Abdomen: Round, soft, nontender. Positive bowel sounds. Genitourinary: Not inspected. Adequate void. Extremities: Have 1+ lower extremity edema. No clubbing or cyanosis. Neurological: She is alert and oriented x3. ASSESSMENT AND PLAN: 1. Acute kidney injury on chronic kidney disease. Patient's creatinine is slightly down again today at 3.3, her BUN remains fairly stable at 64. No indications for intervention. 2. Electrolytes and acidosis. Patient does remain slightly acidotic. No indications for intervention. We will continue to monitor as these are near our baseline. 3. Anemia. This is in target. 4. Chronic obstructive pulmonary disease exacerbation. This is followed by the primary care team. She continues to receive breathing treatments as ordered. I would like to thank you for allowing us to follow with this patient. Dictated by DUNCAN Diaz for Jaguar Last MD Patient seen, data reviewed, discussed with Florentin Hutton on 01/31/17. I agree with the above assessment and plan of care. cc: DUNCAN Diaz MD [facility]
[2017-01-31] MEDS ORDERED: RESTORIL PO PRN (21:58)
[2017-02-01] MEDS: LEVAQUIN 500 MG/D5W 500 MG/100 ML IVPB IV SCH (00:16)
[2017-02-01] MEDS: SOLU-MEDROL IV SCH ×2 (00:16→08:33)
[2017-02-01] MEDS: APRESOLINE PO SCH ×2 (03:13→08:33)
[2017-02-01] MEDS: DUONEB (A & A) INH SCH ×3 (03:45→12:10)
[2017-02-01 07:20] LABS: CALCIUM 7.9 mg/dL (8.8-10.2); POTASSIUM 4.6 mmol/L (3.5-5.1)
[2017-02-01 07:30] LABS: HEMATOCRIT 38.2 % (37.0-47.0); HEMOGLOBIN 12.8 g/dL (12.0-16.0); LYMPH# 0.39 X1000 (1.2-3.4); LYMPH% 4.5 % (20.5-51.1); MANUAL DIFF NEEDED? YES; MCH 28.6 PG (27-31); MCHC 33.5 g/dL (33-37); MCV 85.3 FL (81-99); MONO# 0.17 X1000 (0.11-0.59); NEUT% 93.5 % (42.2-75.2); PLT 123 X1000 (130-400); RBC 4.48 XMIL (4.2-5.4)
[2017-02-01 08:10] VITALS: BP 144/78
[2017-02-01 08:20] LABS: LYMPHS 5 % (21-51); MONO 2 % (1-9)
[2017-02-01] MEDS: METHADONE PO SCH (08:31)
[2017-02-01] MEDS: NICODERM PATCH TD SCH (08:34)
[2017-02-01] MEDS: NORVASC PO SCH (08:34)
[2017-02-01] MEDS: CATAPRES PO SCH (08:34)
[2017-02-01] MEDS: PRINIVIL PO SCH (08:34)
[2017-02-01] MEDS ORDERED: MEDROL DOSEPAK PO SCH (10:30)
[2017-02-01] MEDS: ROCEPHIN 1 GM in NS 50 ML IV SCH (11:48)
[2017-02-01] MEDS ORDERED: MEDROL PO SCH (12:00)
--- NOTE | 2017-02-01 14:35 | DISCHARGE SUMMARY ---
ADMISSION DATE: 01/28/2017 DISCHARGE DATE: 02/01/2017 ADDENDUM REPORT: The patient was seen and examined by me [id number]. All the lab work and vital signs were reviewed. I had a really long conversation of about 10-15 minutes with this patient about smoking cessation and counseling. This patient came in with a COPD exacerbation that has improved. On physical exam, her lungs are clear but she has a prolonged expiratory phase and decreased breath sounds mostly at the bases. She has chronic kidney disease and she has an appointment with Dr. 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 I agreed with the rest of assessment and plan. Please for more information see the complete note of the discharge summary. cc: Santino Ayala MD
--- NOTE | 2017-02-01 16:50 | PROGRESS NOTE ---
DATE: 02/01/2017 SUBJECTIVE: Ms. Mead is resting quietly in bed. She is sitting up. She is waiting for her breakfast. She states that she is to go home today. She denies any chest pain. States her breathing has improved. OBJECTIVE: Her most recent vital signs, temperature 97.6 degrees, blood pressure 141/65, heart rate 74, respirations 18. She is on 2 L nasal cannula. Last recorded saturation 96%. She has had 2120 in. She has had greater then 200 void, though not recorded. The patient states that she has been voiding adequate. LABORATORIES: Sodium 136, potassium 4.6, chloride 104, CO2 19, BUN 66, creatinine 3.3, glucose 203, anion gap 13, calcium 7.9. White count 8.65, hemoglobin 12.8, hematocrit 38.2, with a platelet count of 123,000. PHYSICAL EXAMINATION: General: This is a 56-year-old white female. She is resting in bed. She is in no acute distress. Skin: Warm and dry. She appears chronically ill. HEENT: Normocephalic, atraumatic. Conjunctiva is pale. She has YAHIR. Mucous membranes are moist. Neck: Supple. Trachea midline. No JVD. Cardiovascular: Regular rate and rhythm. She is without murmur or gallop. Lungs: Clear to auscultation anterior, though she has an inspiratory wheeze that she states she can hear. She remains on O2. Equal excursion. Abdomen: Large, round, soft, nontender. Positive bowel sounds. Extremities: She has trace pretibial edema, 1+ is noted. No clubbing or cyanosis. Neurological: Alert and oriented x3. ASSESSMENT AND PLAN: 1. Acute kidney injury on chronic kidney disease stage 4. The patient's baseline creatinine remains at 2.4-range, and is improved today down to 3.3. From our perspective, she is okay for discharge. Will be able to follow in our outpatient setting. She is scheduled for appointment on 02/06/2017. 2. Electrolytes, acid-base balance. These are stable. 3. Anemia. This is at target. 4. Chronic obstructive pulmonary disease exacerbation. This is being followed by Primary Care. I would like to thank you for allowing us to follow with this patient. Dictated by DUNCAN Diaz for Jaguar Last MD Patient seen, data reviewed, discussed with Florentin Hutton on 02/01/17. I agree with the above assessment and plan of care. cc: DUNCAN Diaz MD [facility]
--- NOTE | 2017-02-02 08:29 | DISCHARGE SUMMARY ---
ADMISSION DATE: 01/28/2017 DISCHARGE DATE: 02/01/2017 CONSULTATION: Dr. Jaguar Last with Nephrology. PERTINENT PROCEDURE: Chest CT showed mild segmental atelectasis and/or scarring at the lung bases with possible superimposed infection of the right lung base, thickened gall bladder wall with luminal gallstone; however, this thickening may be due to gallbladder contraction. Splenomegaly. DISCHARGE DIAGNOSES: 1. Chronic obstructive pulmonary disease exacerbation, improved. The patient will continue with DuoNebs and Medrol Dosepak. 2. Right lower lobe pneumonia, improved. Patient weaned off her O2. 3. [id number] kidney disease followed by nephrology. Creatinine slowly trending down. 4. Hypertension, stable. 5. Ongoing tobacco abuse. The patient has been educated on smoking cessation as well as the means to quit on a daily basis. HOSPITAL COURSE: Ms. Mead is a 56-year-old, female, with a history of chronic kidney disease, hypertension, COPD, coronary artery disease who presented to the ED with 2-day history of worsening shortness of breath. She came to the ED to be evaluated. She was found to be dyspneic with a white count of 6. A chest x-ray by plain radiograph showed no evidence of acute pathology. So, she was admitted for COPD exacerbation, ongoing tobacco abuse, as well as [id number] kidney disease. Started on IV Solu-Medrol, IV antibiotics and DuoNebs, aggressive pulmonary toilet. Nephrology consult. Restarted on her home medications. Follow-up CT of the chest showed a possible superimposed infection at the right lung base with subsegmental atelectasis and/or scarring at the lung bases. She had no absolute indications for dialysis throughout her admission. She did have some new onset metabolic acidosis that they continue to monitor again with no indications for intervention. This did come back down to her baseline. Her anemia was in target. She was able to be weaned off her O2. She was initiated on antibiotics given her chest CT showing possible superimposed pneumonia. Clinically, Ms. Mead has improved along with her shortness of breath. She has been provided a list of physicians who are accepting new patients and the phone numbers for this physician referral office to follow up in 7-10 days. Medrol Dosepak is being supplied by [employer] with the [facility], and she has refills on her home medication. She is being discharged home today with self-care. VITAL SIGNS: At time of her discharge, temperature 97.5 degrees, heart rate 72 , respirations 18, blood pressure is 144/78, O2 is 96% on room air. DISCHARGE DIET: Healthy heart. DISCHARGE MEDICATIONS: 1. Albuterol DuoNebs, 3 mL inhaled RT q.4 hours p.r.n. 2. Norvasc 10 mg p.o. daily. 3. Catapres 0.2 mg p.o. t.i.d. 4. Apresoline 50 mg p.o. q.6 hours. 5. Lisinopril 10 mg p.o. b.i.d. 6. Methadone 150 mg p.o. daily. 7. Medrol Dosepak 4 mg p.o. as directed per [facility]. 8. Restoril 7.5 mg p.o. at bedtime p.r.n. FOLLOWUP: Ms. Mead is being discharged home with self-care. She is to follow up with a primary care physician to the list that has been provided to her in the next 1-2 weeks. She is take all medications as prescribed. She has been educated on smoking cessation as well as the means to quit. She can return to the ED for any worsening of symptoms. Time discharging this patient 35 minutes Dictated by DUNCAN Carrera for Santino Ayala MD cc: Santino Ayala MD [facility]
[2017-02-02] MEDS ORDERED: PREDNISONE PO SCH (09:00)
== END 2017-02-01 12:45 | disposition home or self-care (01) ==
LOC: ED 19:38 → 3N 23:19 → SUATTDRO 23:19
PROVIDERS: ATTEND Internal Medicine

== ENCOUNTER 2018-07-06 13:21 | Inpatient (IN) ==
[2018-07-06] MEDS ORDERED: ASPIRIN PO ONE (13:46)
[2018-07-06 14:04] LABS: BASO# 0.01 X1000 (0.0-0.2); BASO% 0.2 % (0.0-0.8); EOS# 0.26 X1000 (0.0-0.7); HEMATOCRIT 34.1 % (37.0-47.0); HEMOGLOBIN 9.9 g/dL (12.0-16.0); IMM GRAN# 0.02 X1000 (0.0-0.04); IMM GRAN% 0.3 % (0.0-0.5); LYMPH# 0.96 X1000 (1.2-3.4); LYMPH% 14.9 % (20.5-51.1); MCH 23.7 PG (27-31); MCV 81.8 FL (81-99); MONO# 0.57 X1000 (0.11-0.59); MONO% 8.8 % (1.7-9.3); MPV 10.6 FL (7.4-10.4); NEUT# 4.63 X1000 (1.4-6.5); NEUT% 71.8 % (42.2-75.2); PLT 145 X1000 (130-400); RBC 4.17 XMIL (4.2-5.4); RDW 20.3 % (11.5-14.5); WBC 6.45 X1000 (4.8-10.8)
[2018-07-06 14:12] LABS: INR 1.11; PROTIME 15.2 Seconds (11.0-16.0)
--- NOTE | 2018-07-06 14:14 | Diag Imaging Result Doc PS360 ---
EXAM: CHEST-2 VIEWS - 07/06/2018 HISTORY: edema TECHNIQUE: Chest two views COMPARISON: 03/24/2017 FINDINGS: Heart size appears the upper range of normal. There is chronic lobulation of the anterior right hemidiaphragm similar to prior. There is mild prominence of central vascular markings. There is stable granuloma from old granulomatous disease at the lateral right midlung. There is subsegmental atelectasis at the right base. There is no dense consolidation, substantial pleural effusion, or pneumothorax identified. There is exaggerated thoracic kyphosis noted. IMPRESSION: Mild central vascular congestion. Subsegmental atelectasis at right base. No discrete pneumonia. Electronically signed by Marco Antonio Garcia 07/06/2018 2:11 PM
[2018-07-06 14:32] LABS: ALB/GLOB RATIO 0.9; ALBUMIN 3.7 g/dL (3.5-5.0); CALCIUM 7.9 mg/dL (8.8-10.2); CREATININE 2.1 mg/dL (0.5-0.9); POTASSIUM 3.6 mmol/L (3.5-5.1); TOTAL BILIRUBIN 0.34 mg/dL (0.20-1.00); TOTAL PROTEIN 7.7 g/dL (6.3-8.3)
[2018-07-06] MEDS ORDERED: VANCOMYCIN 1 GM/NS 1 GM/250 ML IVPB IV ONE (18:30)
[2018-07-06] MEDS ORDERED: ZOSYN 2.25 GM in NS 50 ML IV ONE (18:40)
[2018-07-06] MEDS ORDERED: SOLU-MEDROL IV ONE (18:53)
[2018-07-06] MEDS ORDERED: DUONEB (A & A) INH ONE (18:53)
[2018-07-06 19:10] LABS: URINE SOURCE CLEAN CATCH
[2018-07-06] MEDS ORDERED: APRESOLINE IV ONE (19:11)
[2018-07-06] MEDS ORDERED: CATAPRES PO ONE (19:11)
[2018-07-06 19:19] LABS: BILIRUBIN URINE NEGATIVE (NEGATIVE); BLOOD URINE NEGATIVE (NEGATIVE); COLOR YELLOW; GLUCOSE URINE NEGATIVE (NEGATIVE); KETONE URINE NEGATIVE (NEGATIVE); LEUKOCYTES URINE NEGATIVE (NEGATIVE); NITRITE URINE NEGATIVE (NEGATIVE); PH URINE 6.5; PROTEIN URINE 100 mg/dL (NEGATIVE); TURBIDITY URINE CLEAR (CLEAR); UROBILINOGEN URINE NORMAL (NORMAL)
[2018-07-06 19:21] LABS: UR EPITHELIAL CELLS <10 /HPF (<10); URINE BACTERIA NEGATIVE /HPF; URINE RBC <10 /HPF (<10); URINE WBC <10 /HPF (<10)
[2018-07-06] MEDS ORDERED: LASIX IV ONE (23:21)
--- NOTE | 2018-07-06 23:33 | PROVIDER DOCUMENTATION ---
This chart was entered by Karo Andrews Scribe, acting as scribe for Reagan Sanches MD. HPI-General Adult - General Chief Complaint: Edema Stated Complaint: LEG INFECTION Time Seen by Provider: 07/06/18 17:59 Source: patient Allergies/Adverse Reactions: Patient Allergies Allergy/AdvReac Type Severity Reaction Status Date / Time nitroglycerin Allergy SHORTNESS Verified 07/06/18 18:29 OF BREATH Home Medications: Home Medication List Medication Instructions Recorded Confirmed Last Taken Type Methadone 150 mg PO DAILY 05/26/16 07/06/18 10/11/17 05:00 History Hydralazine [Apresoline] 50 mg PO TID 10/27/16 07/06/18 10/11/17 04:00 History Lisinopril 10 mg PO DAILY 10/27/16 07/06/18 10/10/17 10:00 History Furosemide [Lasix] 80 mg PO QAM 10/10/17 07/06/18 10/11/17 04:00 History Cholecalciferol (Vitamin D3) 1,000 unit PO BID 07/06/18 07/06/18 Unknown History [Vitamin D3] Citalopram [Celexa] 1 tab PO DAILY 07/06/18 07/06/18 Unknown History Clonidine HCl 0.1 mg PO TID 07/06/18 07/06/18 Unknown History Iron 1 tab PO TID 07/06/18 07/06/18 Unknown History - History of Present Illness -Gen Adult Nature of Presenting Problems: 58 yof presents to ed w/co left lower leg redness and wound for few weeks now and being sob. pt reports being on levaquin with no improvement. pt has hx of chf. pt denies nvd, or cp. patient go to methadone clinic daily. Location of Pain/Injury: reports: lower body (left lower extremity) Pain Radiation: reports: no radiation Review of Systems - Adult - REVIEW OF SYSTEMS - ADULT Constitutional: reports: no symptoms reported Eyes: reports: no symptoms reported Ears, Nose, Mouth & Throat: reports: no symptoms reported Cardiovascular: reports: no symptoms reported. denies: chest pain, edema, heart murmur Respiratory: reports: see HPI, shortness of breath. denies: cough, excessive sputum production, hemoptysis Gastrointestinal: reports: no symptoms reported Genitourinary: reports: no symptoms reported Musculoskeletal: reports: see HPI Integumentary: reports: see HPI, other (left lower ex cellulitis) Neurological: reports: no symptoms reported Past History - Adult - PAST MEDICAL HISTORY-ADULT Review of Records: reports: Old Records Reviewed, Nursing Assessment Review, Medications Reviewed, Social history reviewed & non-contributory. Major Childhood Illnesses: denies: history unknown, Diptheria, Mumps, Rubella, Hepatitis A, Hepatitis B, Hib, Influenza, Measles, Pertussis, Pneumococcal Disease, Polio, Rotavirus, Tetanus, Varicella, other Cardiovascular: reports: cardiac disease, CAD, CHF, HTN, hyperlipidemia, PR. denies: denies history, A-Fib, angina, aortic disease, arrhythmia, blood clots, congenital heart disease, heart valve problem, murmur, PAD, palpitations, pacemaker, pericardial disease, PVD, other Respiratory: reports: COPD Gastrointestinal: reports: denies history Obstetrical/Gynecological: reports: denies history Genitourinary: reports: kidney disease Musculoskeletal: reports: chronic pain (back) Neurological: reports: Seizures/Epilepsy Endocrine/Immune: reports: denies history Other Conditions: reports: denies history - PRIOR SURGERIES/PROCEDURES Surgical/Procedure History: reports: cardiac stent, BTL, tonsillectomy, orthopedic (extremity) - IMMUNIZATION STATUS Childhood Immunizations: See Nurse Assessment Flu Vaccine: See Nurse Assessment - FAMILY HISTORY Family History: reviewed, not pertinent - SOCIAL HISTORY Smoking: cigarettes, greater than 1 pack/day Substance Use: none/never Physical Exam-General - PHYSICAL EXAM-ADULT Initial Vital Signs Reviewed: Yes - CONSTITUTIONAL General Appearance: alert, mild distress - EYES Eyes: PERRL/EOMI - HEAD, EARS, NOSE, MOUTH & THROAT HENMT: normocephalic/atraumatic, moist mucous membranes, normal ENT inspection - NECK Neck: non-tender, full range of motion, supple, normal inspection - RESPIRATORY Respiratory: chest non-tender, wheezing. negative: lungs clear, normal breath sounds, crackles, rales - CARDIOVASCULAR Cardiovascular: normal peripheral pulses, regular rate, rhythm - GASTROINTESTINAL (ABDOMEN) Abdominal Exam: normal bowel sounds, non tender, soft - MUSCULOSKELETAL Extremity: normal range of motion, erythema, swelling, tenderness, other (left lower extremity erythema w/discharge). 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, grossly normal, no motor/sensory deficits Progress - PLAN OF CARE/RESULTS Progress/Plan/Lab Results: Vital Signs - 8 hr 07/06/18 13:41 Temperature 98.6 F Pulse Rate 111 H Respiratory Rate 26 H Blood Pressure 197/102 O2 Sat by Pulse Oximetry 91 L Laboratory Results - last 24 hr 07/06/18 07/06/18 07/06/18 13:57 13:57 13:57 WBC 6.45 RBC 4.17 L Hgb 9.9 L Hct 34.1 L MCV 81.8 MCH 23.7 L MCHC 29.0 L RDW Std Deviation 20.3 H Plt Count 145 MPV 10.6 H Immature Gran % (Auto) 0.3 Neut % (Auto) 71.8 Lymph % (Auto) 14.9 L Bailey % (Auto) 8.8 Eos % (Auto) 4.0 Baso % (Auto) 0.2 Immature Gran # (Auto) 0.02 Neut # (Auto) 4.63 Lymph # (Auto) 0.96 L Bailey # (Auto) 0.57 Eos # (Auto) 0.26 Baso # (Auto) 0.01 PT INR PTT (Actin FS) Sodium 139 Potassium 3.6 Chloride 99 Carbon Dioxide 28 Anion Gap 12 BUN 18 Creatinine 2.1 H Estimated GFR/1.73 m2 24 BUN/Creatinine Ratio 9 Glucose 141 H Calculated Osmolality 282 Calcium 7.9 L Total Bilirubin 0.34 AST 16 ALT 5 L Alkaline Phosphatase 101 Creatine Kinase 68 Troponin T Fza-C-Iyijgdzarqn Pept 5255 H Total Protein 7.7 Albumin 3.7 Globulin 4.0 Albumin/Globulin Ratio 0.9 TSH 07/06/18 07/06/18 07/06/18 13:57 13:57 13:57 WBC RBC Hgb Hct MCV MCH MCHC RDW Std Deviation Plt Count MPV Immature Gran % (Auto) Neut % (Auto) Lymph % (Auto) Bailey % (Auto) Eos % (Auto) Baso % (Auto) Immature Gran # (Auto) Neut # (Auto) Lymph # (Auto) Bailey # (Auto) Eos # (Auto) Baso # (Auto) PT 15.2 INR 1.11 PTT (Actin FS) 41.0 Sodium Potassium Chloride Carbon Dioxide Anion Gap BUN Creatinine Estimated GFR/1.73 m2 BUN/Creatinine Ratio Glucose Calculated Osmolality Calcium Total Bilirubin AST ALT Alkaline Phosphatase Creatine Kinase Troponin T 0.025 Bqh-M-Ajqjjtfyhen Pept Total Protein Albumin Globulin Albumin/Globulin Ratio TSH 2.68 Orders Category Date Time Status Cardiac Monitoring DIRECTED Care 07/06/18 13:47 Active Oxygen Therapy- ED Nursing DIRECTED Care 07/06/18 13:47 Active Saline Loc NOW Care 07/06/18 13:47 Active CHEST-2 VIEWS [RAD] Stat Exams 07/06/18 13:47 Completed CBC WITH ELECTRONIC DIFF [HEME] Stat Lab 07/06/18 13:57 Completed CK PROFILE [SP CHEM] Stat Lab 07/06/18 13:57 Completed COMPREHENSIVE METABOLIC PANEL [CHEM] Stat Lab 07/06/18 13:57 Completed PRO B-NATRIURETIC PEPTIDE Stat Lab 07/06/18 13:57 Completed PROTIME WITH INR [COAG] Stat Lab 07/06/18 13:57 Completed PTT [COAG] Stat Lab 07/06/18 13:57 Completed TROPONIN T Stat Lab 07/06/18 13:57 Completed TSH Stat Lab 07/06/18 13:57 Completed URINALYSIS W/POSS RFLX CULT [URINALYSIS] Stat Lab 07/06/18 15:01 Uncollected Aspirin Med 07/06/18 13:46 Discontinued 325 mg PO NOW ONE CP/SOB/Palp >45 yrs of Age Stat Oth 07/06/18 13:46 Ordered EKG [EKG] Stat Ther 07/06/18 13:47 Ordered Result Diagrams: 07/06/18 13:57 07/06/18 13:57 - CONSULTS/PCP/HOSPITALIST Notification #1 *Consult/PCP/Hospitalist*: ROSSI Camacho with Dr. Last Time Discussed: 18:31 Consult Disposition: Admit (Patient condition discussed with Janice. she will see her tmw in the hospital.) #2 Consult: Dr. Wong Time Discussed: 20:11 Consult Disposition: Admit (Hx, PE and patient care discussed with Dr. Wong. accepted.) Departure - Departure Date of Disposition Decision: 07/06/18 Time of Disposition Decision: 20:11 DIAGNOSIS: Cellulitis of left leg, ESRD (end stage renal disease) on dialysis CHF exacerbation Qualifiers: Heart failure type: unspecified Qualified Code(s): I50.9 - Heart failure, unspecified Disposition: ADMITTED INPATIENT 09 Certified Medical Emergency: Emergent Condition: Serious Referrals and Follow-Ups: None,PCP [Primary Care Provider] - - Critical Care Note This patient required my direct & personal management of CC.: No Attestation - Physician/ MARLEEN Attestation Patient care was provided by Advanced Practice Provider:: No The physician spent face to face time with patient:: Yes Advanced Practice Provider documentation review:: Supervising physician onsite and consulted in the evaluation and care of this patient. The physician did have a face to face encounter with the patient. This chart was documented by the indicated scribe, (Karo Andrews Scribe) and accurately reflects the services I performed and decisions made by me, Reagan Jesus MD, as attested by the provider's signature.
[2018-07-06] MEDS ORDERED: NICODERM PATCH TD PRN (23:40)
[2018-07-06] MEDS ORDERED: LABETALOL IV PRN (23:46)
--- NOTE | 2018-07-07 05:04 | HISTORY AND PHYSICAL ---
CHIEF COMPLAINT: Bilateral lower leg swelling. HISTORY OF PRESENT ILLNESS: This is a 58-year-old female with swelling and redness in her legs bilaterally, and shortness of breath. She came into the ER for evaluation. She had been started on antibiotics, I think Levaquin. She has been on it for about a week, but now has had progression in the swelling, pain, drainage. She has a couple areas that look like purulence, and she was admitted for cellulitis, failing outpatient therapy. She denies any fevers. She denies any other major changes. She did miss dialysis though on Monday because of diarrhea issues, which she is not currently having. Workup in the ER, again I do not think she had a very elevated white count, 6000. The rest of her labs were pretty unremarkable, but again admitted for cellulitis, failing outpatient therapy. PAST MEDICAL HISTORY: 1. CAD, status post PCI. That was remote. 2. COPD. 3. Hyperlipidemia. 4. Hypertension. 5. Seizures. PAST SURGICAL HISTORY: She has had a PCI. She has had a bilateral tubal ligation. She has had a tonsillectomy. She had an AV fistula placed. She has just began dialysis. SOCIAL HISTORY: She lives with her son. No alcohol. No drugs. She does smoke about a pack a day. She has done that for probably 40 years. FAMILY HISTORY: Reviewed, noncontributory. ALLERGIES: Nitroglycerin, which causes passing out. REVIEW OF SYSTEMS: Otherwise, negative times a 10-point review of systems. MEDICATIONS: Hydralazine 50 t.i.d., Celexa 20 daily, clonidine 0.1 t.i.d., iron 18 t.i.d., Lasix 80 daily, lisinopril 10 daily, methadone 150 daily. PHYSICAL EXAMINATION: VITAL SIGNS: Blood pressure 147/84, heart rate of 105, respiratory rate of 20, temperature 98.6 degrees. She is 96% on 2 L, I think she may be up to 3 L. GENERAL: A well-developed female in no acute distress. She is a little bit lethargic, but not profoundly so. She wakes up easily. GENERAL: As described. HEENT: Pupils equal, round, reactive to light. Extraocular movements were intact. Ears, nose, and throat exam revealed moist mucous membranes. NECK: Supple. CARDIOVASCULAR: Regular rate and rhythm. PULMONARY: Bilateral breath sounds. Clear to auscultation. GASTROINTESTINAL: Soft, nontender, nondistended. Bowel sounds were positive. EXTREMITIES: No clubbing or cyanosis. LYMPHATICS: No peripheral edema. NEUROLOGICAL: Nonfocal. LABORATORY DATA: Her creatinine was 2. I do not think she had much of a white count, but she has been on antibiotics, 6000. ProBNP 50 to 55. Her chest x-ray showed mild central vascular congestion. No discrete pneumonia. ASSESSMENT: This is a 58-year-old female who presents with cellulitis, failing outpatient therapy, and some degree of volume overload as well. The patient was admitted for treatment. 1. Left lower extremity cellulitis. She does have evidence of chronic venous changes, but there is weeping and multiple ulcerations, some of which are purulent. We will try to culture those. Start antibiotics, vancomycin, per dialysis dosing, and Unasyn, for the time being until we can get some culture results. 2. Volume overload, respiratory insufficiency, and ESRD likely related to a lack of dialysis (missed Monday session due to diarrhea). We will give her Lasix and try to get her in for dialysis early in the morning. 3. Hypertension. We will continue her regular medication. She is on lisinopril, clonidine, Lasix, and hydralazine. 4. History of coronary artery disease. Appears to be stable. Continue her regular medications and follow. Unclear if she truly has any heart failure. Her proBNP is elevated, but she is overloaded from missing dialysis, and she has got chronic renal failure, so I am not sure how much information. The only echocardiogram we have on exam is in 2014, but does suggest diastolic dysfunction at that time, so we will continue to follow. cc: Ck Wong MD [facility]
[2018-07-07] MEDS ORDERED: NS 2,000 ML MISC PRN (06:59)
[2018-07-07] MEDS ORDERED: TIGHT: 0.2 ML/HR FOR DIALYSIS MISC PRN (06:59)
[2018-07-07] MEDS ORDERED: HEPARIN IV PRN (06:59)
[2018-07-07] MEDS ORDERED: IRON PO SCH (09:00)
[2018-07-07] MEDS ORDERED: METHADONE PO SCH (09:00)
[2018-07-07] MEDS ORDERED: VANCOMYCIN 1 GM/NS 1 GM/250 ML IVPB IV SCH (14:30)
[2018-07-07] MEDS: CATAPRES PO SCH ×3 (14:48→18:23)
[2018-07-07] MEDS: LACTINEX PO SCH ×3 (14:48→18:23)
[2018-07-07] MEDS: PRINIVIL PO SCH (14:48)
[2018-07-07] MEDS: APRESOLINE PO SCH ×3 (14:48→18:18)
[2018-07-07] MEDS: VITAMIN D PO SCH ×2 (14:48→22:35)
[2018-07-07] MEDS: UNASYN 3 GM/NS 3 GM/100 ML IVPB IV SCH (14:48)
[2018-07-07] MEDS: HEPARIN SUBQ SCH ×2 (14:48→22:35)
[2018-07-07] MEDS: CELEXA PO SCH (14:49)
--- NOTE | 2018-07-07 14:54 | NEPHROLOGY CONSULTATION ---
DATE: 07/07/2018 REASON FOR ADMISSION: Bilateral lower leg swelling and pain date. REASON FOR CONSULT: ESRD, evaluate and treat. CONSULTING PHYSICIAN: Dr. Wong. HISTORY OF PRESENT ILLNESS: This is a 58-year-old white female who has had known redness and swelling to her lower extremities for greater than 2 weeks. The patient is a hemodialysis patient and when seen on outpatient per Dr. Last and she was started on Levaquin for 10 days, she stated that she finished this p.o. regimen, but continued to have lower extremity swelling and increased work of breathing. She did state that she had gone to her last dialysis treatment on due to increased drainage that she felt was more purulent than clear, and increased redness and swelling. She presented to [facility] Emergency Department for workup and evaluation. She denies any chest pain. No increased work of breathing. Positive for lower extremity swelling. Diminished pulses with lower extremity aching. No fever or chills that she is aware of. No nausea, vomiting or diarrhea. No hematechezia, hemoptasis or hematuria. In the emergency room it was found that her white cell count was 6000. The rest of her labs were unremarkable. Due to outpatient failure for her cellulitis to bilateral lower extremities she was admitted for inpatient treatment. PAST MEDICAL HISTORY: End-stage renal disease with hemodialysis on Monday, , Monday at the [facility]. Noted, COPD, hyperlipidemia, hypertension, seizures, anemia of chronic disease, osteodystrophy of chronic disease. The patient has chronic pain. Has been on methadone in the past. PAST SURGICAL HISTORY: She has a PCI, bilateral tubal ligation, tonsillectomy, AV fistula placement to the left upper arm. SOCIAL HISTORY: She lives with her son. Denies alcohol or illicit drugs. She does smoke a pack a day for approximately 40 pack per year. FAMILY HISTORY: No known renal failure. Positive for heart disease. ALLERGIES: Listed as nitroglycerin. She states caused her to pass out. HOME MEDICATIONS: Have yet to be reconciled. REVIEW OF SYSTEMS: Review of systems x 10 with pertinent positives listed above in the HPI. VITAL SIGNS: Patient's most recent vital signs: Temperature 97.7, blood pressure 147/71, heart rate 78, respirations 18. She is on 3 L nasal cannula. Last recorded saturation 97%. She has had 0 recorded n.p.o. She has only voided 50 mL with need for dialysis. LABS: Still pending this a.m. The patient's potassium yesterday evening was 3.6, BUN 18, creatinine 2.1, with a previous hemoglobin 9.9. She did have a PT of 15.2, INR of 1.11, PTT of 40. She has a venous Doppler study ordered for this morning a wound culture is currently pending. PHYSICAL EXAMINATION: General: This is a 58-year-old white female resting quietly in bed. She is in modest distress secondary to her lower extremity pain. Skin: Warm and dry to the upper extremities. Scaly with weeping and erythematous area to the lower extremities. HEENT: Normocephalic, atraumatic. Conjunctiva is pale pink. She has YAHIR. Mucous membranes are dry. Neck: Supple. Trachea midline. No JVD. Cardiovascular: She is a regular rate and rhythm. No appreciable murmur or gallop. Lungs: Clear to auscultation anteriorly with an isolated audible wheeze. Remains on room air, equal excursion. Abdomen: Large obese, soft, nontender. Positive bowel sounds. Genitourinary: Not inspected. Patient does have minimal void with plan for dialysis assist. Extremities: Chronic venous stasis with some plaque noted. There are areas of some drainage to the left greater than the right. Fistula to the left upper arm with good palpable thrill. Neurologic: She is alert and oriented x 3. ASSESSMENT AND PLAN: 1. Chronic kidney disease stage 5D. The patient is due for her routine dialysis treatment today. We will place her on a 2 K bath. She is to dialyze for 3-1/2 hours. We will attempt to pull the patient's UF to challenge the patient's dry weight to assist with her fluid volume overload. 2. Electrolytes and acid-base balance. These are currently pending with possible adjustment on her dialysis. Labs pending this a.m. Acid-base balance, with correction on dialysis. 3. Fluid volume overload. We will attempt to challenge patient's dry weight. She has been given Lasix x1 in the ED. 4. Hypertension. Patient's medications are to be resumed this a.m. per primary care. 5. Cellulitis, with no response to outpatient therapy. The patient has been started on Zosyn, vancomycin and Unasyn with wound cultures currently pending for sensitivity. I would like to thank you for allowing us to follow with this patient. Dictated by DUNCAN Diaz for [employer] Last MD cc: DUNCAN Diaz MD [facility]
[2018-07-07] MEDS: METHADONE PO SCH (15:47)
[2018-07-07] MEDS ORDERED: VANCOMYCIN 500 MG/NS 500 MG/100 ML IVPB IV ONE (17:00)
[2018-07-07] MEDS ORDERED: CALMOSEPTINE OINTMENT TOP PRN (18:54)
[2018-07-08 07:52] LABS: BASO# 0.01 X1000 (0.0-0.2); BASO% 0.2 % (0.0-0.8); EOS# 0.15 X1000 (0.0-0.7); EOS% 2.6 % (0.0-10.0); HEMATOCRIT 32.6 % (37.0-47.0); HEMOGLOBIN 9.1 g/dL (12.0-16.0); LYMPH# 1.09 X1000 (1.2-3.4); LYMPH% 19.2 % (20.5-51.1); MCH 22.9 PG (27-31); MCHC 27.9 g/dL (33-37); MCV 82.1 FL (81-99); MONO# 0.33 X1000 (0.11-0.59); MONO% 5.8 % (1.7-9.3); MPV 10.8 FL (7.4-10.4); NEUT# 4.11 X1000 (1.4-6.5); NEUT% 72.2 % (42.2-75.2); PLT 138 X1000 (130-400); RBC 3.97 XMIL (4.2-5.4); RDW 20.4 % (11.5-14.5); WBC 5.69 X1000 (4.8-10.8)
[2018-07-08 08:24] LABS: ALBUMIN 3.3 g/dL (3.5-5.0); CALCIUM 7.3 mg/dL (8.8-10.2); CREATININE 2.2 mg/dL (0.5-0.9); PHOSPHORUS 3.4 mg/dL (2.7-4.5); POTASSIUM 3.3 mmol/L (3.5-5.1)
[2018-07-08] MEDS: UNASYN 3 GM/NS 3 GM/100 ML IVPB IV SCH (09:10)
[2018-07-08] MEDS: METHADONE PO SCH (09:12)
[2018-07-08] MEDS: PRINIVIL PO SCH (09:13)
[2018-07-08] MEDS: CATAPRES PO SCH ×3 (09:13→17:59)
[2018-07-08] MEDS: CELEXA PO SCH (09:14)
[2018-07-08] MEDS: APRESOLINE PO SCH ×3 (09:14→17:59)
[2018-07-08] MEDS: LACTINEX PO SCH ×3 (09:14→18:00)
[2018-07-08] MEDS: VITAMIN D PO SCH ×2 (09:14→22:04)
[2018-07-08] MEDS: HEPARIN SUBQ SCH ×2 (09:14→22:04)
[2018-07-08] MEDS: NICODERM PATCH TD SCH (11:32)
--- NOTE | 2018-07-08 14:23 | NEPHROLOGY PROGRESS NOTE ---
DATE: 07/08/2018 SUBJECTIVE: Ms. Mead is resting quietly in bed. She has no complaints. States that she did not let them stick her anymore yesterday evening for IVs and did not receive her vancomycin yesterday due to multiple sticks. Complains of lower extremity pain. OBJECTIVE: Her most recent vital signs temperature 97.2 degrees, blood pressure 123/63, heart rate 64 respirations 19. She is on 2 L nasal cannula. Last recorded saturation 100%. She has had 0 recorded in though she states she is eating. She has had 2600 out. This on dialysis. LABORATORY DATA: Sodium 139, potassium 3.3, chloride 99, CO2 27, BUN 25, creatinine 2.2, glucose 93, anion gap is 13, calcium 7.3, phosphorus 3.4, albumin 3.3. White count 5.69, hemoglobin 9.1, hematocrit 32.6 with a platelet count of 138,000. The patient's blood cultures are negative. Her wound culture has come back as gram-positive cocci. The patient is currently on vancomycin. We will dose this after dialysis. PHYSICAL EXAMINATION: General: This is a 58-year-old white female resting quietly in bed. Her head of bed is elevated. No acute distress though moderate complaints of left lower extremity pain. HEENT: Normocephalic, atraumatic. Conjunctiva is pale pink. She has YAHIR. Mucous membranes are dry. Neck: Supple. Trachea midline. No JVD. Cardiovascular: Regular rate and rhythm. No murmur or gallop appreciated. Lungs: Clear to auscultation anteriorly. Equal excursion on room air. Abdomen: Large, round, soft, obese, nontender. Positive bowel sounds. Genitourinary: Not inspected. Minimal void with dialysis assist. Extremities: Chronic venous stasis with some plaque noted. She does have some cream over her right and lower extremities. Her left leg is more swollen than the left. No drainage present. Fistula to the left upper arm with good palpable thrill. Neurological: She is alert and oriented x3. ASSESSMENT AND PLAN: 1. Chronic kidney disease stage 5D. The patient had a routine dialysis treatment yesterday. No indications for acute intervention today. We will plan for her dialysis treatment on Monday. 2. Cellulitis with positive gram-positive cocci on her culture. We will plan for vancomycin. Once this is started, from our perspective we can continue to give this for 2 to 3 weeks on an outpatient basis. 3. Electrolytes and acid-base balance. Patient has mild hypokalemia. No indications for intervention. 4. Anemia, this is low and acceptable. 5. Fluid volume overload. We challenged patient's dry weight yesterday. May possibly evaluate need for dialysis in the morning. I would like to thank you for allowing us to follow with this patient. Dictated by DUNCAN Diaz for [employer] Last MD cc: DUNCAN Diaz MD
--- NOTE | 2018-07-08 15:16 | INFECTIOUS DISEASE CONSULT REP ---
DATE: 07/08/2018 CONCLUSION: The patient is being seen for bilateral leg cellulitis. The patient is predisposed to developing this because she has chronic edema in her legs, most likely secondary to her obesity and renal failure. Culture from the patient's leg is growing gram-positive cocci. In view of the fact that the patient does get recurrent infections, especially pneumonia, she may have an immunoglobulin deficiency. RECOMMENDATIONS: I agree with treating the patient with vancomycin pending the results of the culture from the patient's leg. I have ordered immunoglobulin levels. DISCUSSION: The patient tells me that approximately 3 weeks ago, she started having erythema and increasing swelling of her left leg more so than her right leg. The patient's laboratory tests show a CBC with a white count of 5690, hemoglobin 9.1, and platelet count 138,000. Creatinine is 2.2. GFR is 23. Blood cultures are negative but, as mentioned above, the culture from the leg is growing gram-positive cocci. The patient tells me that she has gained approximately 80 pounds in the past few months and that has necessitated her going on dialysis. PAST MEDICAL HISTORY/REVIEW OF SYSTEMS: Head, Eyes, Ears, Nose, and Throat: The patient denies any trouble hearing or seeing. She is not complaining of any sore mouth or throat. Neck: No stiffness. Respiratory: The patient has been dyspneic since she has gained so much weight. Cardiac: No chest pain or palpitations. GI: The patient said she has lost her appetite in the past few weeks. She is not having diarrhea or abdominal pain. Genitourinary: No dysuria or flank pain. Neurologic: No seizures. No recent loss of motor or sensory function. Skin: No rashes. 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 She has had surgery on her uterus to remove cancer. PREVIOUS HOSPITALIZATIONS AND OPERATIONS: The patient has had labor and deliveries, a miscarriage, and surgery to remove malignancy from the uterus. The patient has been admitted at least 3 times for pneumonia in the past few years. She has also been admitted with myocardial infarction, left knee surgery. The patient has had an AV fistula formed on her left arm. She has had stents placed in her coronary arteries. She has also had a tonsillectomy. MEDICAL DISEASES: Positive for hypertension, myocardial infarction, coronary artery disease, renal failure for which the patient is on hemodialysis, COPD secondary to cigarette smoking. INFECTIOUS DISEASE HISTORY: Positive for pneumonia and UTI. FAMILY HISTORY: Positive for diabetes mellitus, hypertension, myocardial infarction, and cancer. SOCIAL HISTORY[place] . She lives alone but is next door to her son. She has a dog as a pet. She smokes cigarettes but does not drink alcoholic beverages and she does not use illicit drugs. ALLERGIES: She is allergic to nitroglycerin. HOME MEDICATIONS: Include the following: Vitamin D, Celexa, clonidine, Lasix, Apresoline, iron, lisinopril, and methadone. PHYSICAL EXAMINATION: Vital Signs: Temperature is 97.2 degrees, pulse 64, respirations 19, blood pressure 123/63. The patient is 5 feet 7 inches tall and weighs 287 pounds. General: This is an ill-appearing, middle-aged female. She is in no acute distress. Head, Eyes, Ears, Nose, and Throat: She can hear my spoken words and see near objects. She is wearing dentures. Neck: No meningismus. Lungs: Clear to auscultation. Cardiovascular: Heart rate is regular. Abdomen: Soft and nontender. Extremities: The patient has what appears to be an AV graft in her left arm. It is functional. Both legs are erythematous somewhat and swollen. They also have small areas where there is a beefy red tissue. Neurologic: The patient is awake. She can ambulate without difficulty. Her sensation is intact to touch. Her memory as regarding her medical history is intact. Thank you for the consult. cc: Yasmany Davis MD
--- NOTE | 2018-07-08 18:07 | PROGRESS NOTE ---
DATE: 07/08/2018 SUBJECTIVE: The patient complains of redness and swelling in her legs. She does have some drainage coming mainly from the left leg. OBJECTIVE: Vital Signs: Temperature 97.9, blood pressure 107/57, heart rate 74, respirations 18. O2 sats 97% on 2 L nasal cannula. General: This is a morbidly obese female sitting at the edge of the bed in no acute distress. Heart: S1, S2 normal. Regular rate and rhythm. Lungs: Clear to auscultation bilaterally. Abdomen: Positive bowel sounds. Soft, nontender, nondistended. Extremities: 2+ edema with erythema involving both lower extremities. The patient does have some open wounds on the left leg that are oozing. Neurologic: The patient is alert and oriented x 3. LABS: White blood cell count 5.6, hemoglobin 9.1, hematocrit 32, platelets 138,000. Sodium 139, potassium 3.3, chloride 99, CO2 27, BUN 25, creatinine 2.2, glucose 93. ASSESSMENT AND PLAN: 1. Bilateral lower extremity cellulitis. The wound culture is growing gram- positive cocci. The patient receives vancomycin during her dialysis sessions. 2. End stage renal disease. Management as per the flour blender. 3. Anemia. Stable. 4. Morbid obesity. Aware. 5. Hypertension. Controlled. 6. Tobacco dependence. The patient has been counseled about smoking cessation. A NicoDerm patch has been ordered. 7. CAD. Aware. Continue on the current medications. 8. DVT prophylaxis. Continue on heparin. cc: Nara Madden MD MTDD
[2018-07-08] MEDS: ULTRAM PO PRN (18:59)
[2018-07-08] MEDS: TYLENOL PO PRN (22:04)
[2018-07-09] MEDS: ULTRAM PO PRN (00:31)
[2018-07-09] MEDS: TYLENOL PO PRN ×2 (03:44→14:20)
[2018-07-09] MEDS ORDERED: VANCOMYCIN 1 GM/NS 1 GM/250 ML IVPB IV SCH (07:30)
[2018-07-09 08:26] LABS: BASO# 0.02 X1000 (0.0-0.2); BASO% 0.5 % (0.0-0.8); EOS# 0.17 X1000 (0.0-0.7); EOS% 4.1 % (0.0-10.0); HEMOGLOBIN 9.5 g/dL (12.0-16.0); LYMPH# 1.02 X1000 (1.2-3.4); LYMPH% 24.6 % (20.5-51.1); MCH 23.6 PG (27-31); MCHC 28.8 g/dL (33-37); MCV 81.9 FL (81-99); MONO# 0.37 X1000 (0.11-0.59); MONO% 8.9 % (1.7-9.3); MPV 11.4 FL (7.4-10.4); NEUT# 2.57 X1000 (1.4-6.5); NEUT% 61.9 % (42.2-75.2); PLT 143 X1000 (130-400); RBC 4.03 XMIL (4.2-5.4); RDW 20.5 % (11.5-14.5); WBC 4.15 X1000 (4.8-10.8)
[2018-07-09 08:41] LABS: ALBUMIN 3.4 g/dL (3.5-5.0); CALCIUM 7.7 mg/dL (8.8-10.2); CREATININE 2.9 mg/dL (0.5-0.9); PHOSPHORUS 4.1 mg/dL (2.7-4.5); POTASSIUM 4.3 mmol/L (3.5-5.1)
[2018-07-09] MEDS: CATAPRES PO SCH ×3 (09:18→17:57)
[2018-07-09] MEDS: NICODERM PATCH TD SCH (09:18)
[2018-07-09] MEDS: VITAMIN D PO SCH ×2 (09:18→21:06)
[2018-07-09] MEDS: METHADONE PO SCH (09:19)
[2018-07-09] MEDS: CELEXA PO SCH (09:19)
[2018-07-09] MEDS: PRINIVIL PO SCH (09:19)
[2018-07-09] MEDS: HEPARIN SUBQ SCH ×2 (09:19→21:07)
[2018-07-09] MEDS: APRESOLINE PO SCH ×3 (09:19→17:57)
[2018-07-09] MEDS: LACTINEX PO SCH ×3 (11:09→17:57)
[2018-07-09] MEDS ORDERED: ZOFRAN ODT PO PRN (11:27)
--- NOTE | 2018-07-09 17:36 | NEPHROLOGY PROGRESS NOTE ---
DATE: 07/09/2018 TIME SEEN: 0830. SUBJECTIVE: Ms. Mead is resting quietly. Head of the bed is elevated. She is finishing her breakfast. States that she is feeling well. She denies any pain or increased work of breathing. OBJECTIVE: Her most recent vital signs: Temperature 98.1 degrees, blood pressure 139/66, heart rate 72 respirations She is on room air. Last recorded saturation is 90%. Intake and output: She has had 0 recorded in or out, though she states that she has been eating. Minimal void. DIAGNOSTIC STUDIES: Sodium 144, potassium 4.3, chloride 104, CO2 of 29, BUN 39, creatinine 2.9, glucose 85, her anion gap is 11, calcium 7.7, phosphorus 4.1, albumin 3.4. Her white count 4.5, hemoglobin 9.1, hematocrit 33, platelet count 143,000. The patient has positive wound culture with positive Staphylococcus aureus. She is currently on vancomycin for the lower leg wound. Negative for blood cultures. PHYSICAL EXAMINATION: General: This is a 58-year-old white female, resting quietly in bed. Her head of the bed is slightly elevated. She is in no acute distress. Skin: Warm and dry. HEENT: Normocephalic, atraumatic. Conjunctiva is pale pink. She has YAHIR. Mucous membranes are moist. Neck: Supple. Trachea midline. No JVD. Cardiovascular: Regular rate and rhythm. No murmur or gallop appreciated. Lungs: Clear to auscultation anteriorly. Equal excursion on room air. Abdomen: Large, round, soft, nontender. Positive bowel sounds. Genitourinary: Not inspected. Minimal void with dialysis assist. Extremities: Have chronic venous stasis with some plaque. She has white salve to her right lower extremity. Wound culture has come back positive for Staphylococcus aureus. Left leg is less swollen. No drainage present. Fistula remains intact to the left upper arm with good palpable thrill. Neurological: She is alert and oriented x3. ASSESSMENT AND PLAN: 1. Chronic kidney disease, stage 5D. The patient is due for her routine dialysis treatment in the morning. No indications for intervention today. 2. Cellulitis with positive gram-positive cocci per wound culture. She is to be on vancomycin 1g with dialysis treatment since the patient does not have IVs. We can plan to give this on an outpatient basis if needed at the [facility] clinic. 3. Electrolytes and acid-base balance. These are acceptable. 4. Anemia. This remains low but stable. 5. Fluid volume overload. We will attempt for fluid volume control while on dialysis in the morning. I would like to thank you for allowing us to follow with this patient. Dictated by DUNCAN Diaz for [employer]ar Last MD cc: DUNCAN Diaz MD [facility]
--- NOTE | 2018-07-09 18:11 | PROGRESS NOTE ---
DATE: 07/09/2018 SUBJECTIVE: The patient complains of nausea and had an episode of emesis earlier today. She denies having any abdominal pain. She states that she had a bowel movement yesterday. OBJECTIVE: Vital Signs: Temperature 97.9 degrees, blood pressure 121/75, heart rate 81, respirations 18, O2 saturation 94% on 3 L nasal cannula. General: This is a morbidly obese female lying in bed in no acute distress. Heart: S1, S2 normal. Regular rate and rhythm. Lungs: Clear to auscultation bilaterally. Abdomen: Positive bowel sounds. Soft, nontender, nondistended. Extremities: 1+ edema. The patient has erythema involving both lower extremities with open wounds on the left leg. Neuro: The patient is alert and oriented x3. LABS: White blood cell count 4.1, hemoglobin 9.5, hematocrit 33, platelets 143,000, sodium 144, potassium 4.3, chloride 104, CO2 29, BUN 39, creatinine 2.9, glucose 85. ASSESSMENT AND PLAN: 1. Bilateral lower extremity cellulitis secondary to methicillin-resistant Staphylococcus aureus. Continue with vancomycin after each dialysis session. 2. End-stage renal disease. Management as per the account support rep. 3. Morbid obesity. Aware. 4. History of intravenous drug abuse. Continue on methadone. 5. Hypertension. Controlled. 6. Coronary artery disease. Aware. 7. Deep vein thrombosis prophylaxis. Continue on heparin. cc: Nara Madden MD
--- NOTE | 2018-07-09 20:34 | INFECTIOUS DISEASE PROGRESS NO ---
DATE: 07/09/2018 PRESENT ILLNESS: The patient has bilateral leg cellulitis to which she is predisposed because she has chronic leg edema, most likely secondary to her obesity and renal failure. MEDICATIONS: Currently, the patient is getting vancomycin after each dialysis. PHYSICAL EXAMINATION: Vital Signs: Temperature is 97.9, pulse 81, respirations 18, blood pressure 121/75. General: This is an obese, middle-aged female. She is in no acute distress. HEENT: She does not have any drainage from her nose or ears. There is no white coating on her tongue. Lungs: Clear to auscultation. Cardiovascular: Heart rate is regular. Abdomen: Soft, nontender. Extremities: Patient has an AV graft in her left arm which is functional. Both legs are less swollen and less erythematous and they have no drainage coming from them. Neurologic: The patient does not have a tremor. She can move her arms and legs. LAB AND X-RAY: A culture from the patient's foot is growing methicillin-resistant Staph aureus. CBC shows a white count of 4150, hemoglobin 9.5, and platelet count 143,000. Creatinine is 2.9, GFR is 17. There is no new radiographic study. ASSESSMENT AND PLAN: The patient has methicillin-resistant Staph aureus cellulitis of the legs. Her white count is dropping and this may be from the patient getting vancomycin. My plan is to stop vancomycin and start her on doxycycline and I am going to have a prescription through the computer generated for doxycycline 100 mg p.o. every 12 hours for 2 weeks and I will have the patient follow up in my office in 2 weeks. COMORBIDITIES: She is obese and she has an end-stage renal disease. cc: Yasmany Davis MD
[2018-07-09] MEDS: DOXYCYCLINE PO SCH (21:06)
[2018-07-10] MEDS: ULTRAM PO PRN ×3 (00:18→22:59)
--- NOTE | 2018-07-10 08:23 | Extremity Venous Study ---
PROCEDURE NAME: Venous U/S Left Leg - 07/09/2018 PROCEDURE PERFORMED: Left lower extremity venous study. REQUESTING PHYSICIAN: Dr. Wong. [employer]: Abena. INDICATIONS: Edema. EQUIPMENT: [employer] Vivid E9 ultrasound system with 9 L-D transducer. FINDINGS: Image the left lower extremity venous system was obtained in both sagittal and transverse planes. Doppler was used to evaluate veins for spontaneity, phasicity, respiratory excursion, and digital augmentation. RESULTS: Difficult scan per the casting technician's note secondary to body habitus with all levels of the thigh not being visualized. There is no evidence for acute deep venous thrombosis. There is reflux noted in the left greater saphenous vein that becomes a varicosity, but no obvious superficial or deep venous thrombosis noted. INTERPRETATION: Technically difficult study but no obvious superficial or deep venous thrombosis noted. There is reflux noted in the left greater saphenous vein which measures over 8.86 seconds at the saphenofemoral junction. cc: MD Ck Barros MD
[2018-07-10 08:24] LABS: BASO# 0.01 X1000 (0.0-0.2); BASO% 0.2 % (0.0-0.8); EOS# 0.12 X1000 (0.0-0.7); EOS% 2.3 % (0.0-10.0); HEMATOCRIT 33.7 % (37.0-47.0); HEMOGLOBIN 9.5 g/dL (12.0-16.0); LYMPH# 1.11 X1000 (1.2-3.4); MCH 23.5 PG (27-31); MCHC 28.2 g/dL (33-37); MCV 83.4 FL (81-99); MONO% 7.6 % (1.7-9.3); MPV 10.6 FL (7.4-10.4); NEUT# 3.64 X1000 (1.4-6.5); NEUT% 68.9 % (42.2-75.2); PLT 142 X1000 (130-400); RBC 4.04 XMIL (4.2-5.4); RDW 20.4 % (11.5-14.5); WBC 5.28 X1000 (4.8-10.8)
[2018-07-10 08:34] LABS: ALBUMIN 3.6 g/dL (3.5-5.0); CALCIUM 7.2 mg/dL (8.8-10.2); CREATININE 3.2 mg/dL (0.5-0.9); PHOSPHORUS 5.3 mg/dL (2.7-4.5); POTASSIUM 4.4 mmol/L (3.5-5.1)
[2018-07-10] MEDS: APRESOLINE PO SCH ×3 (08:48→16:29)
[2018-07-10] MEDS: CATAPRES PO SCH ×3 (08:48→16:29)
[2018-07-10] MEDS: HEPARIN SUBQ SCH ×2 (08:48→20:22)
[2018-07-10] MEDS: VITAMIN D PO SCH ×2 (08:49→20:22)
[2018-07-10] MEDS: NICODERM PATCH TD SCH (08:49)
[2018-07-10] MEDS: DOXYCYCLINE PO SCH ×2 (08:49→20:22)
[2018-07-10] MEDS: CELEXA PO SCH (08:49)
[2018-07-10] MEDS: LACTINEX PO SCH ×3 (08:49→16:29)
[2018-07-10] MEDS: PRINIVIL PO SCH (08:49)
[2018-07-10] MEDS: METHADONE PO SCH (08:49)
[2018-07-10] MEDS: TYLENOL PO PRN ×2 (11:52→20:30)
[2018-07-10] MEDS ORDERED: TIGHT: 0.2 ML/HR FOR DIALYSIS MISC PRN (12:03)
[2018-07-10] MEDS ORDERED: HEPARIN IV PRN (12:03)
[2018-07-10] MEDS ORDERED: NS 2,000 ML MISC PRN (12:03)
[2018-07-10] MEDS ORDERED: VANCOMYCIN 1 GM/NS 1 GM/250 ML IVPB IV SCH (12:15)
--- NOTE | 2018-07-10 18:01 | PROGRESS NOTE ---
DATE: 07/10/2018 SUBJECTIVE: Patient resting in bed. OBJECTIVE: Vital Signs: As follows: Temperature 97.6, pulse 64, respirations 18, blood pressure 99/59, oxygen saturation is 98%. HEENT: Atraumatic, normocephalic. Cardiovascular: S1, S2. Respiratory: Has evidence of good air entry bilaterally. Abdomen: Soft, nontender. No masses felt. Extremities: No evidence of significant edema in the lower extremities. Central Nervous System: No obvious focal deficits are noted. LABS: As follows: WBC is 5.28, hematocrit is 33.7, with a platelet count of 142,000. Sodium 137, potassium 4.4, chloride 98, bicarb is 25, creatinine is 2.2. Wound culture from the leg positive for MRSA. ASSESSMENT AND PLAN: 1. Bilateral lower extremity cellulitis secondary to methicillin-resistant Staphylococcus aureus. Continue antibiotics as recommended by Infectious Disease. 2. End-stage renal disease. Nephrology managing. 3. History of intravenous drug use. The patient is on methadone. 4. Hypertension. Blood pressure is currently controlled and seemed to be on the low side. We will need to adjust patient's blood pressure medications. 5. Coronary artery disease. Stable. 6. DVT prophylaxis. Heparin. cc: Roscoe Bullock MD MTDD
--- NOTE | 2018-07-10 19:24 | NEPHROLOGY PROGRESS NOTE ---
DATE: 07/10/2018 Time seen is 0905 SUBJECTIVE: Ms. Mead is resting quietly in bed, head of bed is elevated, she has just finished her breakfast. She states that she feels that she is ready to go home. VITAL SIGNS: Temperature 98.4 degrees, blood pressure 123/79, heart rate 82, respirations are 20, she is on 3 L nasal cannula, last recorded saturation 98%, she has had 500 in, she has had 0 recorded out. LABS: Sodium is 137, potassium 4.4, chloride 98, CO2 25, BUN 49, creatinine 3.2, glucose is 120, her anion gap is 14, calcium 7.2, phosphorus 5.3, albumin 3.6. White count 5.28, hemoglobin 9.5, hematocrit 33.7 with a platelet count of 142,000. PHYSICAL EXAM: General: This is a 58-year-old white female she is resting quietly in bed. She appears chronically ill though no acute distress. Skin is warm and dry. HEENT: Normocephalic, atraumatic. Conjunctiva is pale pink. She has YAHIR. Mucous membranes are moist. Neck: Supple. Trachea midline. No JVD. Cardiovascular: Regular rate and rhythm. No murmur or gallop appreciated. Lungs: Clear to auscultation anterior, equal excursion on room air. Abdomen: Soft, large, round, nontender, positive bowel sounds. Genitourinary: Not inspected, minimal void with dialysis assist. Extremities: Have chronic venous stasis with plaque present, she has white salve to her right lower extremity. Left leg is less swollen than the right. There is no drainage evident. Fistula remains intact to left upper arm, good palpable thrill. Neurological: Alert and oriented x3. ASSESSMENT AND PLAN: 1. Chronic kidney disease stage 5D. Patient is due for her routine dialysis treatment today, we will place her on a 2 K bath, she is to dialyze for 3-1/2 hours. We will attempt to pull and challenge patient's dry weight. 2. Cellulitis with positive gram-positive cocci per wound. The patient is to receive vancomycin 1 g after each dialysis treatment. We can give Vancomycin to her on an outpatient basis when ready for discharge. 3. Electrolytes and acid-base balance. These are acceptable. 4. Anemia. This is low but stable. 5. Fluid volume overload again with dialysis assistance. Like to thank you for allowing us to follow with this patient. Dictated by DUNCAN Daiz for [employer] Last MD cc: DUNCAN Diaz MD [facility]
[2018-07-11 07:32] LABS: ALBUMIN 3.4 g/dL (3.5-5.0); CALCIUM 7.5 mg/dL (8.8-10.2); CREATININE 2.5 mg/dL (0.5-0.9); POTASSIUM 3.9 mmol/L (3.5-5.1)
[2018-07-11] MEDS: VITAMIN D PO SCH (10:14)
[2018-07-11] MEDS: NICODERM PATCH TD SCH (10:14)
[2018-07-11] MEDS: LACTINEX PO SCH (10:14)
[2018-07-11] MEDS: APRESOLINE PO SCH (10:14)
[2018-07-11] MEDS: PRINIVIL PO SCH (10:14)
[2018-07-11] MEDS: DOXYCYCLINE PO SCH (10:15)
[2018-07-11] MEDS: CELEXA PO SCH (10:15)
[2018-07-11] MEDS: METHADONE PO SCH (10:16)
[2018-07-11] MEDS: CATAPRES PO SCH (10:16)
[2018-07-11] MEDS: HEPARIN SUBQ SCH (10:17)
[2018-07-11 11:45] VITALS: BP 155/74
--- NOTE | 2018-07-11 13:15 | DISCHARGE SUMMARY ---
ADMISSION DATE: 07/07/2018 DISCHARGE DATE: 07/11/2018 PRINCIPAL DIAGNOSIS: Identified bilateral lower extremity cellulitis secondary to methicillin- resistant Staphylococcus aureus. SECONDARY DIAGNOSES: 1. End-stage renal disease. 2. History of intravenous drug use, currently on methadone. 3. Hypertension. 4. Coronary artery disease. 5. Chronic obstructive pulmonary disease. 6. Hyperlipidemia. 7. Seizure disorder. 8. Anemia. DISCHARGE MEDICATIONS: Include the followin. Doxycycline 100 mg p.o. twice a day. 2. Methadone 150 mg p.o. daily. 3. Lisinopril 10 mg p.o. daily. 4. Hydralazine 50 mg p.o. three times a day. 5. Lasix 80 mg p.o. daily. 6. Citalopram 1 p.o. daily. 7. Clonidine 0.1 mg three times a day. 8. Iron 1 tab three times a day. 9. Vitamin D 50,000 units p.o. twice a day. CONSULTATIONS DONE DURING THIS HOSPITAL STAY: 1. Dr. Jaguar Last, Nephrology. 2. Dr. Yasmany Davis, Infectious Disease. PROCEDURES DONE DURING THIS HOSPITAL STAY: Venous Doppler, lower extremity, 07/07/2018. HOSPITAL COURSE: Ms. Cheri Mead is a 57-year-old female, who presented to the hospital because of swelling and redness of her legs bilaterally, as well as shortness of breath. The patient had been on antibiotics for probable cellulitis in the lower extremity. At the time of presentation, she was diagnosed as having lower extremity cellulitis of the left lower extremity, as well as volume overload related to missed hemodialysis session. During the course of the hospital stay, she was found to have MRSA from wound culture of the lower extremity. Antibiotic management was done by the Infectious Disease team. The patient had previously been on intravenous vancomycin and this was later transitioned to oral doxycycline. The patient was seen by the Nephrology team for volume overload during the course of the hospital stay. At this time, she has done well. She is stable. She can now be discharged home. DISCHARGE PHYSICAL EXAMINATION: Vital Signs: During my evaluation today, the vital signs are as follows: Temperature 98.3 degrees, pulse 69, respiratory rate 18, blood pressure 155/74, oxygenation 97 percent. HEENT: Atraumatic, normocephalic. Cardiovascular system: S1, S2. Respiratory system: Has evidence of good air entry bilaterally. Abdomen: Soft, nontender. No masses felt. Extremities: No evidence of significant edema in the lower extremities. Central nervous system: No obvious focal deficits noted. LABS: Sodium 139, potassium 3.9, chloride is 99, bicarbonate 28. BUN is 32, creatinine is 2.5, glucose 92. PLAN: Discharge home today. Follow up with grips, Dr. Last. Follow up with Dr. Yasmany Davis, Infectious Disease, and also follow up with the primary care physician. cc: Roscoe Bullock MD
--- NOTE | 2018-07-11 14:59 | NEPHROLOGY PROGRESS NOTE ---
DATE: 07/11/2018 TIME SEEN: 0910 hours. SUBJECTIVE: Ms. Mead is sitting up in bed. She is eating her breakfast, so she is picking at it. She states that she is slightly nauseated. OBJECTIVE: Her most recent vital signs: Her last temperature 97.9 degrees, blood pressure 127/75, heart rate 65, respirations 18. She is on 3 L nasal cannula; last recorded saturation is 100%. She has had 770 in; she has had 2084 out with 1.3 L on dialysis. LABS: Sodium is 139, potassium 3.9, chloride 99, CO2 28. BUN 32, creatinine 2.5, glucose is 92. Her anion gap is 12. Her calcium is 7.5, phosphorus 3.0, albumin is 3.4. The patient had a previous hemoglobin of 9.5 on the twelfth. The patient had a 24-hour urine that has not been resulted; it states uncollected in the orders. PHYSICAL EXAMINATION: General: This is a 58-year-old white female. She is resting quietly in bed. She is in no acute distress, though she appears chronically ill. Skin: Warm and dry. HEENT: Normocephalic, atraumatic. Conjunctiva is pale pink. She has YAHIR. Mucous membranes are dry. Neck: Supple. Trachea midline. No JVD. Cardiovascular: Regular rate and rhythm. No murmur or gallop appreciated. Lungs: Clear to auscultation anterior. Equal excursion on room air. Abdomen: Soft, large, round, nontender. Positive bowel sounds. Genitourinary: Not inspected. Patient has been voiding with dialysis assist. Extremities: Have had chronic venous stasis with plaque present. She has a white salve to bilateral lower extremities today. Left leg is less swollen than the right. Diminished pulses. No drainage present. AV fistula remains intact to the left upper arm with good palpable thrill. Neurological: Alert and oriented x3. ASSESSMENT AND PLAN: 1. Chronic kidney disease stage 5 D. The patient is due for her routine dialysis treatment in the morning. She tolerated her treatment well yesterday. She did receive a dose of vancomycin. The patient is to be discharged in the next 24 hours. 2. Cellulitis with gram-positive cocci. Patient has received her vancomycin. Dr. Davis has indicated he would like her to continue doxycycline 100mg po BID x 2 weeks. 3. Electrolytes and acid-base balance. This is acceptable. 4. Anemia. This has been low, but stable. 5. Fluid volume overload with assistance with dialysis. Her legs are much smaller at this time. I would like to thank you for allowing us to follow with this patient. Dictated by DUNCAN Diaz for [employer]ar Last MD cc: DUNCAN Diaz MD [facility]
== END 2018-07-11 14:45 | disposition home or self-care (01) | DRG 602 ==
LOC: ED 13:21 → 3N 07-07 00:21 → SUATTDRO 07-07 00:21 → 3N 07-08 16:38
PROVIDERS: ATTEND Internal Medicine
CPT/HCPCS: 71020; 71046; 80053; 80069; 81001; 82550; 82784; 83605; 83735; 83880; 84443; 84484; 85025; 85610; 85730; 87040; 87070; 87077; 87186; 93005; 93971; 94640; 96365; 96375; 99285; A9270; J0295; J0360; J1644; J2543; J2930; J3370; S0109

== ENCOUNTER 2018-10-04 18:02 | Inpatient (IN) ==
[2018-10-04] MEDS ORDERED: ROCEPHIN 1 GM in NS 50 ML IV ONE (19:16)
[2018-10-04 19:30] LABS: URINE SOURCE CLEAN CATCH
[2018-10-04] MEDS ORDERED: MORPHINE IV ONE ×2 (19:35→21:03)
[2018-10-04 19:36] LABS: BASO# 0.01 X1000 (0.0-0.2); BASO% 0.1 % (0.0-0.8); EOS# 0.24 X1000 (0.0-0.7); EOS% 2.6 % (0.0-10.0); HEMOGLOBIN 12.8 g/dL (12.0-16.0); IMM GRAN# 0.02 X1000 (0.0-0.04); IMM GRAN% 0.2 % (0.0-0.5); LYMPH# 1.16 X1000 (1.2-3.4); LYMPH% 12.8 % (20.5-51.1); MCH 26.6 PG (27-31); MONO# 0.84 X1000 (0.11-0.59); MONO% 9.3 % (1.7-9.3); MPV 10.3 FL (7.4-10.4); NEUT# 6.81 X1000 (1.4-6.5); PLT 188 X1000 (130-400); RBC 4.82 XMIL (4.2-5.4); RDW 19.4 % (11.5-14.5); WBC 9.08 X1000 (4.8-10.8)
[2018-10-04 19:45] LABS: INR 1.05; PROTIME 14.6 Seconds (11.0-16.0)
[2018-10-04 19:46] LABS: PTT 40.7 Seconds (22.3-41.8)
[2018-10-04 19:57] LABS: BILIRUBIN URINE NEGATIVE (NEGATIVE); BLOOD URINE SMALL (NEGATIVE); COLOR YELLOW; GLUCOSE URINE NEGATIVE (NEGATIVE); KETONE URINE NEGATIVE (NEGATIVE); LEUKOCYTES URINE SMALL (NEGATIVE); NITRITE URINE NEGATIVE (NEGATIVE); PH URINE 5.5; PROTEIN URINE 100 mg/dL (NEGATIVE); SP GRAVITY URINE 1.007; TURBIDITY URINE HAZY (CLEAR); UR EPITHELIAL CELLS <10 /HPF (<10); URINE BACTERIA NEGATIVE /HPF; URINE RBC <10 /HPF (<10); URINE WBC <10 /HPF (<10); UROBILINOGEN URINE NORMAL (NORMAL)
--- NOTE | 2018-10-04 20:02 | Diag Imaging Result Doc PS360 ---
CHEST-1 VIEW - 10/04/2018 INDICATION: sepsis protocol COMPARISON: 08/03/2018 FINDINGS: Stable nodular density in the right midlung. Stable multifocal linear atelectasis or scarring in both lung bases. No new or focal infiltrates otherwise. Heart size and pulmonary vascularity is normal. No pneumothorax or pleural effusion. IMPRESSION: No change from prior. Electronically signed by Ravinder Herring 10/04/2018 8:00 PM
[2018-10-04 20:05] LABS: AGAP 13; ALB/GLOB RATIO 0.7; ALBUMIN 3.2 g/dL (3.5-5.0); ALKALINE PHOSPHATASE 99 U/L (32-104); BUN 28 mg/dL (8-22); CALCIUM 7.7 mg/dL (8.8-10.2); CHLORIDE 102 mmol/L (98-107); CK PROFILE 45 U/L (24-173); COSMO 281; CREATININE 3.1 mg/dL (0.5-0.9); ESTIMATED GFR 16; GLUCOSE 126 mg/dL (70-104); GOT 12 U/L (10-30); GPT < 5 U/L (10-36); POTASSIUM 3.8 mmol/L (3.5-5.1); SODIUM 137 mmol/L (136-145); TCO2 22 mmol/L (25-35); TOTAL BILIRUBIN 0.27 mg/dL (0.20-1.00)
--- NOTE | 2018-10-04 20:08 | Diag Imaging Result Doc PS360 ---
LOWER LEG-LEFT - 10/04/2018 INDICATION: injury TECHNIQUE: Four views COMPARISON: 04/20/2015 FINDINGS: There has been significant progression in the severe osteoarthritis at the lateral compartment of the left knee. No fracture or dislocation. In the posterior ankle soft tissues, between the ankle bones and the Achilles tendon, there is a linear metallic density that appears as a needle or wire. This measures 2.4 cm. There is diffuse pedal edema. There are bulky degenerative heel spurs. IMPRESSION: Nonspecific findings. Electronically signed by Ravinder Herring 10/04/2018 8:06 PM
[2018-10-04] MEDS ORDERED: VANCOMYCIN 1 GM/NS 1 GM/250 ML IVPB IV ONE (21:31)
[2018-10-04] MEDS ORDERED: DILAUDID IV ONE (21:45)
[2018-10-04] MEDS ORDERED: NS 1,000 ML IV ONE (22:12)
[2018-10-04] MEDS ORDERED: CATAPRES PO ONE (22:32)
--- NOTE | 2018-10-04 23:30 | HISTORY AND PHYSICAL ---
PRIMARY CARE PHYSICIAN: Dr. Jaguar Last. REASON FOR ADMISSION: Four month history of recurrent left lower extremity redness and pain. HISTORY OF PRESENT ILLNESS: Mrs. Mead is a 58-year-old woman with past medical history of carotid disease status post PCI, COPD, hyperlipidemia, seizures, hepatitis C with a history of IBD, IV drug abuse on chronic methadone. She has a history of hyperlipidemia. She reports that 4 months ago she was admitted for redness and pain of her left lower extremity, preceded by extensive blistering of the left lower extremity. On that occasion, she was treated for cellulitis which was found to be MRSA positive. She reports that despite extensive antibiotic treatment, she has been having recurrent and somewhat persistent infection of that left lower extremity. Three weeks ago, she came to the ER, given extensive prolonged course of antibiotics, which did not affect the redness and pain in her legs. She is back today because she had been having fever and chills for the last 2 days, intermittent confusion, and increased drainage from the left lower extremity. She also complains of 1-week history of left hip pain which is nonradiating. The aforementioned pain of her left lower extremity is sharp, constant, worse with prolonged standing. Denies any trauma. I did not "ask" if she has been exposed to any river water or beach water or eaten any seafood. The patient denies any night sweats, arthralgia, or rash elsewhere. Denies any weight loss. No GI or complaints. No cardiorespiratory complaints. Twelve system review was done, positive per HPI. ALLERGIES: To nitroglycerin. HOME MEDICATIONS: Have not been reconciled, but she denies any recent use of medication the last 4 months other than multivitamins prescribed by Dr. Last. FAMILY HISTORY: Only positive for coronary artery disease. She denies any rheumatological problems, liver, kidney disease, inflammatory bowel problems. SOCIAL HISTORY: Smokes about a pack a day. No alcohol or drug use. Lives with her son. SURGICAL HISTORY: PCI, tubal ligation, tonsillectomy, AV fistula placed, but she is no longer on dialysis. LABORATORY WORK: White count 9000, H and H 12 and 40, platelets 180 with a normal differential. PTT is normal. BUN is 20, creatinine 3.1. Glucose 126. Troponin is negative. Calcium 7.7, lactate 1.2. Urinalysis, small leukocytes, small blood. Lower extremity x-ray, nonspecific findings noted. Chest film, no acute finding. Stable nodular density in the right middle lung. Stable multifocal linear atelectasis and scarring in both lungs. PHYSICAL EXAMINATION: VITAL SIGNS: Blood pressure is 200/110, heart rate 130, respirations 18, temperature 99.2, she is saturating 97 percent on room air. GENERAL: She is a middle-aged woman, who is in acute distress from her pain. She is alert and oriented to person, place, and time. Normal mood and sad affect. HEENT: Head is normocephalic, atraumatic. Eyes, PERRLA, EOMI. She is anicteric, not pale. ENT: Oropharynx exam is grossly normal, other than bilateral angular stomatitis noted. NECK: Supple with no JVD but mild hepatojugular reflux. No thyromegaly. CHEST: Clear to auscultation with good air entry in both lung gotti. CARDIOVASCULAR: First and sounds heard. No gallops, murmurs, rubs. Rhythm is regular. ABDOMEN: Protuberant, soft, nontender. No megaly. Bowel sounds are hypoactive. RECTAL: Deferred at this time. EXTREMITIES: The patient has extensive denudation of the lateral aspect of her left leg. The base is erythematous, moist with drainage of serosanguineous fluid on the floor. This aforementioned area has raised edges. On the medial aspect of her right left lower extremity, there are tiny punctate ulcerative lesions which appear to be somewhat chronic. There is no surrounding erythema in this area. The patient has 1+ pitting edema both lower extremities. No other areas of breakdown interdigitally in her toes or on the plantar surface or dorsum of both feet. Pulses distally are slightly diminished in the lower extremities, i.e., in the feet, but full and regular symmetrical in the upper extremities. No clubbing, peripheral cyanosis. There is a chronic ulceration on the calf area of the right lower extremity with a dry center. No exudation noted. NEUROLOGICAL: No gross focal deficits. SKIN: Intact, but otherwise abnormal. See above. Areas of the left lower extremity around the ulcerated areas were warm to touch, but not indurated, not fluctuant. MUSCULOSKELETAL: Patient has point tenderness of the left hip. I did not do Pasha's test or straight leg raising test because the patient was in a lot of pain when I touched her left leg. ASSESSMENT: 1. Left lower extremity cellulitis with pre-existing chronic dermatosis. Would cover patient for methicillin-resistant Staphylococcus aureus and other broad-spectrum antibiotics. Due to the chronic nature of her lesions, which could be related to underlying venous insufficiency, I am still worried that she may have dermatological manifestation of hepatitis C, which she has. Differential to be considered in this patient will be that of leukocytoclastic vasculitic lesions, cryoglobulinemia, which may also explain her preexisting chronic kidney disease, and porphyria cutanea tarda. I will suggest a biopsy of some of the lesions to confirm or refute these diagnoses. Vibrio vulnificus is unlikely due to the rather chronic subacute nature. Infectious disease needs to be consulted. Wound cultures were sent off and need to be followed. 2. Chronic kidney disease. Etiology could be hypertensive, but still cannot rule out glomerulonephritis secondary from hepatitis C. Dr. Last may be consulted if deemed necessary. 3. Coronary artery disease. Resume patient's blood pressure medication. Consider aspirin if no contraindication. Beta blockers may also be preferred in this patient since she is a little tachycardic. 4. Hypertension. Continue home antihypertensives once reconciled. 5. Hepatitis C. Currently stable. 6. Hyperlipidemia. Resume statins if on patient's medication list once reconciled. 7. Left hip pain. X-ray will be ordered, rule out avascular necrosis. cc: Winsome Santillan MD MTDD
[2018-10-05] MEDS ORDERED: TYLENOL PO PRN (00:09)
[2018-10-05] MEDS ORDERED: ZOFRAN IV PRN (00:09)
[2018-10-05] MEDS ORDERED: NICODERM PATCH ONE (00:15)
[2018-10-05] MEDS: DILAUDID IV PRN ×5 (00:17→19:18)
--- NOTE | 2018-10-05 01:13 | PROVIDER DOCUMENTATION ---
This chart was entered by Anna Arias Scribe, acting as scribe for Reagan Sanches MD. HPI-General Adult - General Chief Complaint: SEPSIS ALERT - D Stated Complaint: LEGS RED, SWOLLEN Time Seen by Provider: 10/04/18 19:04 Source: patient Allergies/Adverse Reactions: Patient Allergies Allergy/AdvReac Type Severity Reaction Status Date / Time nitroglycerin Allergy SHORTNESS Verified 07/06/18 18:29 OF BREATH Home Medications: Home Medication List Medication Instructions Recorded Confirmed Last Taken Type Methadone 150 mg PO DAILY 05/26/16 10/05/18 10/11/17 05:00 History Hydralazine [Apresoline] 50 mg PO TID 10/27/16 10/05/18 10/11/17 04:00 History Furosemide [Lasix] 40 mg PO BID 10/10/17 10/05/18 10/11/17 04:00 History Cholecalciferol (Vitamin D3) 1,000 unit PO BID 07/06/18 10/05/18 Unknown History [Vitamin D3] Citalopram [Celexa] 1 tab PO DAILY 07/06/18 10/05/18 Unknown History Clonidine HCl 0.1 mg PO TID 07/06/18 10/05/18 Unknown History Bacitracin Ointment 1 applicatn TOP BID #1 tube 08/03/18 Unknown Rx - History of Present Illness -Gen Adult Nature of Presenting Problems: Pt is 58/F presenting to ED w/ swollen, red and weeping L calf. Pt has hx of MRSA and has been on 4 different antibiotics in the last 4 months. Has not taken any in the last month and has not been to PCP. Pt sts that it is very painful. Pt has hx of renal insufficiently as well as HTN. PT was on dialysis but sts that she has not been taking it recently, but is still making urine. Location of Pain/Injury: reports: lower extremity (L calf) Pain Radiation: reports: no radiation Quality of Pain: reports: aching Severity: reports: moderate Onset/Duration: reports: gradual Timing: reports: still present, getting worse Context/Activities at Onset: reports: none Modifying Factors: improves with: nothing Associated Symptoms: denies: chest pain, diarrhea, nausea, vomiting Similar Symptoms Previously?: Yes Recently seen or treated by another doctor?: Yes Review of Systems - Adult - REVIEW OF SYSTEMS - ADULT Constitutional: reports: no symptoms reported. denies: chills, fever Eyes: reports: no symptoms reported Ears, Nose, Mouth & Throat: reports: no symptoms reported Cardiovascular: reports: no symptoms reported. denies: chest pain Respiratory: reports: no symptoms reported Gastrointestinal: reports: no symptoms reported. denies: abdominal pain, nausea, vomiting Integumentary: reports: see HPI Neurological: reports: no symptoms reported Past History - Adult - PAST MEDICAL HISTORY-ADULT Review of Records: reports: Old Records Reviewed, Nursing Assessment Review, Medications Reviewed, Social history reviewed & non-contributory. Major Childhood Illnesses: denies: history unknown, Diptheria, Mumps, Rubella, Hepatitis A, Hepatitis B, Hib, Influenza, Measles, Pertussis, Pneumococcal Disease, Polio, Rotavirus, Tetanus, Varicella, other Cardiovascular: reports: cardiac disease, CAD, HTN, hyperlipidemia, [place]. denies: denies history, A-Fib, angina, aortic disease, arrhythmia, blood clots, congenital heart disease, CHF, heart valve problem, murmur, PAD, palpitations, pacemaker, pericardial disease, PVD, other Respiratory: reports: COPD Gastrointestinal: reports: denies history Obstetrical/Gynecological: reports: denies history Genitourinary: reports: kidney disease Musculoskeletal: reports: chronic pain (back) Neurological: reports: Seizures/Epilepsy Endocrine/Immune: reports: denies history Other Conditions: reports: denies history - PRIOR SURGERIES/PROCEDURES Surgical/Procedure History: reports: cardiac stent, BTL, tonsillectomy, orthopedic (extremity) - IMMUNIZATION STATUS Childhood Immunizations: See Nurse Assessment Flu Vaccine: See Nurse Assessment - FAMILY HISTORY Family History: reviewed, not pertinent - SOCIAL HISTORY Smoking: cigarettes Provider spent 3-5 mins advising pt. on dangers of tobacco.: Discussed manners to quit use, and f/u contacts for add'l counseling. Substance Use: none/never Alcohol Use Frequency: never Living Situation: family Physical Exam-General - PHYSICAL EXAM-ADULT Initial Vital Signs Reviewed: Yes - CONSTITUTIONAL General Appearance: appears well, alert, mild distress, obese - EYES Eyes: PERRL/EOMI, pink conjunctivae - HEAD, EARS, NOSE, MOUTH & THROAT HENMT: normocephalic/atraumatic, moist mucous membranes, normal ENT inspection, TMs normal, pharynx normal - NECK Neck: non-tender, full range of motion, supple, normal inspection - RESPIRATORY Respiratory: lungs clear - CARDIOVASCULAR Cardiovascular: tachycardia - GASTROINTESTINAL (ABDOMEN) Abdominal Exam: normal bowel sounds, non tender, soft - LYMPHATIC Lymphatic: no adenopathy - MUSCULOSKELETAL Back Exam: normal inspection, no CVA tenderness, no vertebral tenderness Extremity: calf tenderness, erythema, inflammation, swelling, tenderness, other (lt lower is red, swollen and weeping dorita colored fluid) - SKIN Integumentary: normal color, warm/dry - NEUROLOGIC Neurologic: grossly normal - PSYCHIATRIC Psych/Mental Status: normal mood/affect, normal thought content, normal thought process, oriented x 3 Progress - PLAN OF CARE/RESULTS Progress/Plan/Lab Results: Vital Signs - 8 hr 10/04/18 18:18 10/04/18 18:55 10/04/18 19:30 Temperature 99.2 F Pulse Rate 110 H 134 H Respiratory Rate 22 16 Blood Pressure 201/100 200/118 O2 Sat by Pulse Oximetry 98 96 97 Laboratory Results - last 24 hr 10/04/18 10/04/18 10/04/18 18:49 19:00 19:00 WBC 9.08 RBC 4.82 Hgb 12.8 Hct 40.0 MCV 83.0 MCH 26.6 L MCHC 32.0 L RDW Std Deviation 19.4 H Plt Count 188 MPV 10.3 Immature Gran % (Auto) 0.2 Neut % (Auto) 75.0 Lymph % (Auto) 12.8 L [place] % (Auto) 9.3 Eos % (Auto) 2.6 Baso % (Auto) 0.1 Immature Gran # (Auto) 0.02 Neut # (Auto) 6.81 H Lymph # (Auto) 1.16 L [place] # (Auto) 0.84 H Eos # (Auto) 0.24 Baso # (Auto) 0.01 PT INR PTT (Actin FS) Sodium 137 Potassium 3.8 Chloride 102 Carbon Dioxide 22 L Anion Gap 13 BUN 28 H Creatinine 3.1 H Estimated GFR/1.73 m2 16 BUN/Creatinine Ratio 9 Glucose 126 H Calculated Osmolality 281 Calcium 7.7 L Total Bilirubin 0.27 AST 12 ALT < 5 L Alkaline Phosphatase 99 Creatine Kinase 45 Troponin T Total Protein 8.0 Albumin 3.2 L Globulin 4.8 Albumin/Globulin Ratio 0.7 Plasma Lactate Urine Source CLEAN CATCH Urine Color YELLOW Urine Turbidity HAZY Urine pH 5.5 Ur Specific [place] 1.007 Urine Protein 100 A Ur Glucose (Stick) NEGATIVE Ur Ketones (Stick) NEGATIVE Urine Blood SMALL A Urine Nitrite NEGATIVE Urine Bilirubin NEGATIVE Urobilinogen Dipstick NORMAL Urine Leukocytes SMALL A Urine WBC (Auto) <10 Urine RBC (Auto) <10 U Epithel Cells (Auto) <10 Urine Bacteria (Auto) NEGATIVE 10/04/18 10/04/18 10/04/18 19:00 19:00 19:00 WBC RBC Hgb Hct MCV MCH MCHC RDW Std Deviation Plt Count MPV Immature Gran % (Auto) Neut % (Auto) Lymph % (Auto) [place] % (Auto) Eos % (Auto) Baso % (Auto) Immature Gran # (Auto) Neut # (Auto) Lymph # (Auto) [place] # (Auto) Eos # (Auto) Baso # (Auto) PT 14.6 INR 1.05 PTT (Actin FS) 40.7 Sodium Potassium Chloride Carbon Dioxide Anion Gap BUN Creatinine Estimated GFR/1.73 m2 BUN/Creatinine Ratio Glucose Calculated Osmolality Calcium Total Bilirubin AST ALT Alkaline Phosphatase Creatine Kinase Troponin T < 0.010 Total Protein Albumin Globulin Albumin/Globulin Ratio Plasma Lactate 1.2 Urine Source Urine Color Urine Turbidity Urine pH Ur Specific [place] Urine Protein Ur Glucose (Stick) Ur Ketones (Stick) Urine Blood Urine Nitrite Urine Bilirubin Urobilinogen Dipstick Urine Leukocytes Urine WBC (Auto) Urine RBC (Auto) U Epithel Cells (Auto) Urine Bacteria (Auto) Orders Category Date Time Status Cardiac Monitoring DIRECTED Care 10/04/18 18:52 Active IV Insertion ORDERED Care 10/04/18 18:52 Completed Notify MD of + Sepsis Screen NOW Care 10/04/18 18:52 Active Notify Physician As Ordered Care 10/04/18 18:52 Active CHEST-1 VIEW [RAD] Stat Exams 10/04/18 18:52 Completed LOWER LEG-LEFT [RAD] Stat Exams 10/04/18 19:34 Completed BLOOD CULTURE [BLDCUL] Stat Lab 10/04/18 19:00 Ordered CBC WITH DIFF [HEME] Stat Lab 10/04/18 19:00 Completed CK PROFILE [SP CHEM] Stat Lab 10/04/18 19:00 Completed COMPREHENSIVE METABOLIC PANEL [CHEM] Stat Lab 10/04/18 19:00 Completed LACTATE, PLASMA [CHEM] Lab 10/04/18 19:00 Completed PROTIME WITH INR [COAG] Stat Lab 10/04/18 19:00 Completed PTT [COAG] Stat Lab 10/04/18 19:00 Completed ROUTINE CULTURE [RM] Routine Lab 10/04/18 19:18 Ordered TROPONIN T Stat Lab 10/04/18 19:00 Completed URINALYSIS W/POSS RFLX CULT [URINALYSIS] Stat Lab 10/04/18 18:49 Completed CefTRIAXONE [Rocephin] 1 gm Med 10/04/18 19:16 Discontinued 0.9% Sodium Chloride Inj [Ns] 50 ml IV NOW Morphine Med 10/04/18 19:35 Discontinued 4 mg IV NOW ONE Oxygen Device Stat Oth 10/04/18 18:52 Active LE cellulitis failed outpatient Tx need inpatient IV antibiotic and further management by Hospitalist Result Diagrams: 10/04/18 19:00 10/04/18 19:00 - XRAY 1 XRAY: Left XRAY Study: other (lower leg) Impression: Abnormal (FINDINGS: There has been significant progression in the severe osteoarthritis at the lateral compartment of the left knee. No fracture or dislocation. In the posterior ankle soft tissues, between the ankle bones and the Achilles tendon, there is a linear metallic density that appears as a needle or wire. This measures 2.4 cm. There is diffuse pedal edema. There are bulky degenerative heel spurs. IMPRESSION: Nonspecific findings. Electronically signed by Ravinder Herring 10/04/2018 8:06 PM [id number]) - CONSULTS/PCP/HOSPITALIST Notification #1 *Consult/PCP/Hospitalist*: [place] Time Discussed: 21:11 Reason/Comments: pt will be admited Consult Disposition: Admit Departure - Departure Date of Disposition Decision: 10/04/18 Time of Disposition Decision: 21:11 DIAGNOSIS: Left leg cellulitis, Sinus tachycardia Disposition: ADMITTED INPATIENT 09 Certified Medical Emergency: Emergent Condition: Stable - Critical Care Note This patient required my direct & personal management of CC.: No Attestation - Physician/ MARLEEN Attestation Patient care was provided by Advanced Practice Provider:: No The physician spent face to face time with patient:: Yes Advanced Practice Provider documentation review:: Supervising physician onsite and consulted in the evaluation and care of this patient. The physician did have a face to face encounter with the patient. This chart was documented by the indicated scribe, (Anna Arias, Chandana) and accurately reflects the services I performed and decisions made by me, Reagan Jesus MD, as attested by the provider's signature.
[2018-10-05] MEDS ORDERED: NICODERM PATCH TD ONE (01:16)
[2018-10-05] MEDS: LOPRESSOR PO SCH ×3 (02:35→21:03)
[2018-10-05] MEDS: ZYVOX PO SCH ×3 (02:36→21:03)
[2018-10-05] MEDS: HEPARIN SUBQ SCH ×2 (02:36→12:03)
[2018-10-05] MEDS: OXY IR PO PRN ×4 (02:36→23:38)
[2018-10-05] MEDS: NS 1,000 ML IV SCH ×3 (04:34→16:29)
[2018-10-05 04:50] LABS: BASO# 0.03 X1000 (0.0-0.2); BASO% 0.3 % (0.0-0.8); EOS# 0.23 X1000 (0.0-0.7); EOS% 2.5 % (0.0-10.0); HEMATOCRIT 33.9 % (37.0-47.0); HEMOGLOBIN 11.3 g/dL (12.0-16.0); IMM GRAN# 0.02 X1000 (0.0-0.04); IMM GRAN% 0.2 % (0.0-0.5); LYMPH# 1.44 X1000 (1.2-3.4); LYMPH% 15.6 % (20.5-51.1); MCH 27.2 PG (27-31); MCHC 33.3 g/dL (33-37); MCV 81.5 FL (81-99); MONO# 1.03 X1000 (0.11-0.59); MONO% 11.1 % (1.7-9.3); MPV 10.1 FL (7.4-10.4); NEUT# 6.49 X1000 (1.4-6.5); NEUT% 70.3 % (42.2-75.2); PLT 155 X1000 (130-400); RBC 4.16 XMIL (4.2-5.4); RDW 19.1 % (11.5-14.5); WBC 9.24 X1000 (4.8-10.8)
[2018-10-05 07:43] LABS: AGAP 10; ALB/GLOB RATIO 0.7; ALBUMIN 2.9 g/dL (3.5-5.0); ALKALINE PHOSPHATASE 93 U/L (32-104); BUN 29 mg/dL (8-22); CALCIUM 7.5 mg/dL (8.8-10.2); CHLORIDE 106 mmol/L (98-107); COSMO 283; CREATININE 3.4 mg/dL (0.5-0.9); ESTIMATED GFR 14; GLUCOSE 127 mg/dL (70-104); GOT 11 U/L (10-30); GPT < 5 U/L (10-36); MAGNESIUM 1.7 mg/dL (1.5-2.7); POTASSIUM 4.3 mmol/L (3.5-5.1); SODIUM 138 mmol/L (136-145); TCO2 22 mmol/L (25-35); TOTAL BILIRUBIN 0.27 mg/dL (0.20-1.00)
[2018-10-05] MEDS: ASPIRIN PO SCH (10:34)
[2018-10-05] MEDS: APRESOLINE PO SCH ×2 (12:13→16:29)
--- NOTE | 2018-10-05 15:37 | INFECTIOUS DISEASE CONSULT REP ---
DATE: 10/05/2018 CONCLUSION: The patient has cellulitis of the left leg and also some in the right leg as well. She is predisposed to this because she has marked leg edema and she refuses to elevate her legs. RECOMMENDATIONS: I agree with treating the patient with Rocephin pending culture results. I have put in a consult for the wound nurse. I have told the patient that it would be best if we can elevate her legs. It would help clear up her infection and also the edema in both legs. She told me that it hurts too much when she elevates her legs and for now is refusing to do it. DISCUSSION: The patient says that for the past 4 months she has had cellulitis of her left leg. She is being seen at [facility]. Her legs have not gotten any better. Laboratory studies thus far show a CBC with a white count of 9240, hemoglobin 11.3, and platelet count 155,000. Creatinine is 3.4. GFR is 14. Liver function studies are normal. Urinalysis shows no bacteria and no white cells on one test and only a very small amount of white cells on another test. Blood, urine and left leg cultures are all pending. Chest x-ray shows a stable right mid lung nodule. [employer] HISTORY: The patient is 4, para 2, AB 2. She has had a tubal ligation. PREVIOUS HOSPITALIZATIONS AND OPERATIONS: She has had 2 labor and deliveries, 2 miscarriages, and a tubal ligation. She has been admitted twice in the past for pneumonia. She has also been admitted to the hospital for surgery on her left knee, but it was not a total knee arthroplasty. The patient has had a myocardial infarction and stroke also. MEDICAL DISEASES: Positive for hypertension, myocardial infarction, stroke, and right lung nodule which is stable in appearance. INFECTIOUS DISEASE HISTORY: Positive for 2 prior episodes of pneumonia and a urinary tract infection. FAMILY HISTORY: Positive for diabetes mellitus, hypertension, myocardial infarction, and cancer. SOCIAL HISTORY[place] . She lives with her nephew. She has a dog as a pet. The patient smokes cigarettes but she does not drink alcoholic beverages or use illicit drugs. ALLERGIES: She has listed an allergy to nitroglycerin. HOME MEDICATIONS: Include vitamins, Celexa, clonidine, Lasix, Apresoline, and methadone. The patient is allergic to nitroglycerin and Nubain. PHYSICAL EXAMINATION: Vital Signs: Temperature is 98.1 degrees, pulse 75, respirations 16, blood pressure 162/71. The patient is 5 feet 7 inches tall and weighs 258 pounds. General: This is a ill-appearing middle-aged female. She does not appear to be in any acute distress however. Head/eyes/ears/nose/throat: She can hear my spoken words and see near objects. She does not have any white patches in her mouth . Neck: No meningismus. Lungs: Clear to auscultation. Cardiovascular: Heart rate is regular. Abdomen: Soft and nontender. Extremities: Both legs are erythematous and edematous, but the left leg is worse than the right leg. Also on the left leg there are some superficial wounds and a few have a small amount of eschars on them. Neurologic: The patient is awake. She can move her extremities. There is no tremor. Her sensation was intact to touch. The patient's memory of her medical condition was good. Thank you for the consult. cc: Yamsany Davis MD
--- NOTE | 2018-10-05 15:53 | PROGRESS NOTE ---
DATE: 10/05/2018 INTERVAL HISTORY: The patient still with significant largely serous drainage from numerous ulcers in the left lower extremity. Still complaining of tenderness to touch with her left leg, but states that her general leg pain is improved. Remains afebrile. No new complaints. Patient refused hip x-ray earlier. REVIEW OF SYSTEMS: A 12 point review of systems negative except as per Interval History. LABORATORIES: WBC 9.2, hemoglobin 11.3, hematocrit 33.9, platelets 155,000. Chemistry remarkable for BUN 29, creatinine 3.4, glucose 127. VITALS: Temperature maximum 99.2 degrees, pulse 62, respirations 16, blood pressure 142/69, O2 saturation 97% on room air. PHYSICAL EXAMINATION: General: No acute distress. Vitals: As above. HEENT: Normocephalic, atraumatic. Moist mucous membranes. Neck: No cervical adenopathy. Cardiovascular: Regular rate and rhythm. No murmurs noted. Pulmonary: Clear to auscultation bilaterally. No wheezing, rales, or rhonchi noted. Extremities: Peripheral pulses significantly decreased, but are present. Extensive shallow ulcers of the left lateral and posterior lower leg. A few smaller ulcers elsewhere. Significant weeping from the larger areas, largely serous, although a few areas look like they may be slightly purulent. Neurologic: Cranial nerves grossly intact. No focal deficits identified. Psychiatric: Normal mood and affect. Awake, alert, and oriented x3. Skin: Ulcers above. Right lower leg with some chronic venous stasis changes. Otherwise, no new rashes or lesions seen. ASSESSMENT AND PLAN: 1. Left lower extremity cellulitis on top of chronic venous stasis and chronic ulcers which are likely infected. On antibiotics with Zyvox and Rocephin. Infectious Disease and Wound Care consulted. Given the extensive drainage from these wounds and some few small areas of slough, will ask General Surgery to see. Uncertain if this might benefit from debridement or not. Attempted to obtain arterial Dopplers, but patient refused. 2. Chronic kidney disease, stage 4. The patient's baseline creatinine not entirely clear from review of the medical record, but appears to be 2.6 to 3.2. Slightly up today from yesterday. We will monitor closely and consider Nephrology consult if it worsens further. 3. Coronary artery disease. Hold aspirin until seen by Surgery to make sure no debridement is necessary. If no debridement, then we will restart aspirin. Continue monitoring. 4. Hyperlipidemia. Continue statin. 5. Chronic hepatitis C, stable. 6. Chronic obstructive pulmonary disease. No sign of exacerbation at this time. Monitor. 7. Left hip pain. No limb deformity. No limitation of movement, given degree of chronic edema. Low suspicion for fracture, but will obtain x-ray to assess for arthritis or avascular necrosis if the patient becomes amenable. She refused previously.
[2018-10-05] MEDS: ROCEPHIN 2 GM in NS 50 ML IV SCH (21:03)
[2018-10-06] MEDS: NS 1,000 ML IV SCH ×4 (00:29→20:15)
[2018-10-06] MEDS: HEPARIN SUBQ SCH ×3 (01:03→23:25)
[2018-10-06] MEDS: OXY IR PO PRN (05:04)
[2018-10-06 06:47] LABS: BASO# 0.01 X1000 (0.0-0.2); BASO% 0.2 % (0.0-0.8); EOS# 0.24 X1000 (0.0-0.7); EOS% 3.8 % (0.0-10.0); LYMPH# 0.87 X1000 (1.2-3.4); LYMPH% 13.9 % (20.5-51.1); MCH 26.3 PG (27-31); MCHC 31.4 g/dL (33-37); MCV 83.7 FL (81-99); MONO# 0.58 X1000 (0.11-0.59); MONO% 9.2 % (1.7-9.3); MPV 10.7 FL (7.4-10.4); NEUT# 4.58 X1000 (1.4-6.5); NEUT% 72.9 % (42.2-75.2); PLT 158 X1000 (130-400); RBC 4.18 XMIL (4.2-5.4); RDW 19.3 % (11.5-14.5); WBC 6.28 X1000 (4.8-10.8)
[2018-10-06 07:10] LABS: CALCIUM 7.3 mg/dL (8.8-10.2); CREATININE 2.9 mg/dL (0.5-0.9); POTASSIUM 4.5 mmol/L (3.5-5.1)
[2018-10-06] MEDS: ZYVOX PO SCH ×2 (08:56→23:25)
[2018-10-06] MEDS: LOPRESSOR PO SCH (08:56)
[2018-10-06] MEDS: CELEXA PO SCH (08:56)
[2018-10-06] MEDS: ASPIRIN PO SCH (08:56)
[2018-10-06] MEDS: APRESOLINE PO SCH ×3 (08:56→16:43)
[2018-10-06] MEDS: METHADONE PO SCH (08:57)
--- NOTE | 2018-10-06 10:20 | CONSULTATION ---
DATE OF CONSULTATION: 10/06/2018 Ms. Cheri Mead is a 58-year-old morbidly obese white female who has renal failure and has a left arm AV fistula but she is not receiving dialysis at this time. She has chronic lower extremity swelling and she has developed some superficial ulceration of the left lower extremity and skin changes of both lower extremities because of her edema. She is being treated chronically at [facility] because of her legs. She was admitted with cellulitis involving her left lower extremity and superficial weeping wounds. We were asked to evaluate her. PHYSICAL EXAM: General: Ms. Mead is overweight. She is awake, cooperative. She is in no acute distress. She has no jaundice. No oral lesions. No cervical or supraclavicular lymphadenopathy. Heart: Regular rate. Lungs: Clear to auscultation and percussion bilaterally. She has a functional left forearm AV fistula that was placed by Dr. Garay. Abdomen: Soft, nontender without palpable mass. Extremities: She has palpable femoral pulses. She has chronic edema involving both lower extremities. She has some superficial wounds involving the left lower extremity with some weepage of fluid and cellulitis. She has been admitted. She is receiving local wound care from our wound care nurse. She is receiving IV antibiotics and she states clinically her cellulitis is already improved. Certainly her swelling of her lower extremities is a cause for her wounds and volume status whether it is dialysis or medically treated is important as is elevation of her legs. At discharge I would have her return to [facility] for chronic wound care lower extremities. cc: Bree Rios MD
[2018-10-06] MEDS: CATAPRES PO SCH ×2 (12:03→16:43)
--- NOTE | 2018-10-06 16:26 | PROGRESS NOTE ---
DATE: 10/06/2018 INTERVAL HISTORY: The patient reports significant improvement in her lower extremity discomfort. No fevers or chills. A little less drainage. No new complaints. Hip pain is also somewhat improved. REVIEW OF SYSTEMS: Twelve-point review of systolic except as per interval history. LABORATORY DATA: WBC 6.2, hemoglobin 11, hematocrit 35.0, platelets 158,000. Sodium 139, potassium 4.5, bicarbonate 21, BUN 26, creatinine 2.9, glucose 117. OBJECTIVE: T-max 99.3 degrees, pulse 65, respirations 16, blood pressure 146/70, O2 saturation 95% on room air. General: No acute distress. HEENT: Normocephalic, atraumatic. Moist mucous membranes. No cervical adenopathy. Cardiovascular: Regular rate and rhythm. No murmurs noted. Pulmonary: Clear to auscultation bilaterally. No wheezing, rales or rhonchi heard. Extremities: Peripheral pulses decreased but present. Extensive left lower leg ulcers bandaged. On looking underneath the bandages, drainage does appear to be decreased. Layo appears significantly core drier. Neurologic: Cranial nerves grossly intact. No focal deficits identified. Psychiatric: Normal mood and affect. Awake, alert and oriented x3. Skin: Ulcers as above. Some chronic venous stasis changes bilaterally. No new rashes or lesions. ASSESSMENT AND PLAN: 1. Left lower extremity cellulitis and ulcers in the setting of chronic venous stasis. On antibiotics with Rocephin and Zyvox. Infectious Disease consulted. We will continue to encourage the patient to keep the legs elevated as possible. General Surgery consulted, but given improvement over the last day, suspect she will not need debridement. The patient refused arterial Doppler. 2. Chronic kidney disease stage 4. The patient's baseline creatinine is somewhere in the 2.6 to 3.2 range. Slightly up from that yesterday, but back in her baseline range today. Continue to monitor. 3. Coronary artery disease. We will likely restart aspirin tomorrow as long as Surgery thinks no debridement will be necessary. 4. Hyperlipidemia. Continue statin. 5. Chronic hepatitis C. Aware. 6. Chronic obstructive pulmonary disease. No sign of exacerbation at this time. Monitor.
[2018-10-06] MEDS: NICODERM PATCH TD PRN (18:35)
[2018-10-06] MEDS: ROCEPHIN 2 GM in NS 50 ML IV SCH (23:24)
[2018-10-07] MEDS: NS 1,000 ML IV SCH ×3 (00:21→12:12)
[2018-10-07 06:45] LABS: BASO# 0.01 X1000 (0.0-0.2); BASO% 0.2 % (0.0-0.8); EOS# 0.14 X1000 (0.0-0.7); EOS% 2.9 % (0.0-10.0); HEMATOCRIT 33.6 % (37.0-47.0); HEMOGLOBIN 10.3 g/dL (12.0-16.0); LYMPH# 0.76 X1000 (1.2-3.4); LYMPH% 15.8 % (20.5-51.1); MCH 26.3 PG (27-31); MCHC 30.7 g/dL (33-37); MCV 85.7 FL (81-99); MONO# 0.43 X1000 (0.11-0.59); MPV 10.7 FL (7.4-10.4); NEUT# 3.46 X1000 (1.4-6.5); NEUT% 72.1 % (42.2-75.2); PLT 147 X1000 (130-400); RBC 3.92 XMIL (4.2-5.4); RDW 19.7 % (11.5-14.5)
[2018-10-07 07:09] LABS: CALCIUM 7.1 mg/dL (8.8-10.2); CREATININE 2.7 mg/dL (0.5-0.9); POTASSIUM 4.6 mmol/L (3.5-5.1)
--- NOTE | 2018-10-07 08:54 | PROGRESS NOTE ---
DATE: 10/07/2018 SUBJECTIVE: Ms. Mead has left lower extremity wounds, and she had developed cellulitis involving her left leg. She was admitted and receiving IV antibiotics and local wound care, and her cellulitis has improved. Her white blood cell count is normal. She has chronic renal insufficiency. BUN and creatinine 27 and 2.7. She is afebrile. She is on linezolid and Rocephin. ASSESSMENT: I feel that she is improving with local wound care and IV antibiotics. She does have chronic lower extremity swelling. She is being cared for at [facility] [place] which at discharge she will have to get back to those appointments. cc: Bree Rios MD
[2018-10-07] MEDS: CELEXA PO SCH (09:01)
[2018-10-07] MEDS: ZYVOX PO SCH ×2 (09:01→20:29)
[2018-10-07] MEDS: APRESOLINE PO SCH ×3 (09:01→16:51)
[2018-10-07] MEDS: CATAPRES PO SCH ×3 (09:01→16:51)
[2018-10-07] MEDS: ASPIRIN PO SCH (09:01)
[2018-10-07] MEDS: METHADONE PO SCH (09:02)
[2018-10-07] MEDS ORDERED: LEVAQUIN 500 MG/D5W 500 MG/100 ML IVPB IV SCH (11:00)
[2018-10-07] MEDS: HEPARIN SUBQ SCH (12:00)
--- NOTE | 2018-10-07 14:25 | PROGRESS NOTE ---
DATE: 10/07/2018 INTERVAL HISTORY: The patient's lower extremity discomfort continues to improve slowly. Wounds appear to be healing slowly with antibiotics and wound care. No acute events overnight. No new complaints. REVIEW OF SYSTEMS: Twelve point review of systems negative except as per interval history. LABS: WBC 4.8, hemoglobin 10.3, hematocrit 33.6, platelets 147,000. Sodium 140, potassium 4.6, bicarbonate 16, BUN 27, creatinine 2.7. VITALS: T-max 98.2, pulse 67, respirations 16, blood pressure 137/65. O2 sat 99% on room air. PHYSICAL EXAMINATION: General: No acute distress. Vitals: As above. HEENT: Normocephalic, atraumatic. Moist mucous membranes. Neck: No cervical adenopathy. Cardiovascular: Regular rate and rhythm. No murmurs noted. Pulmonary: Clear to auscultation bilaterally. No wheezing, rales or rhonchi. Abdomen: Soft, nontender, nondistended. Bowel sounds positive. Extremities: Peripheral pulses remain decreased but present. Left lower leg bandaged. Slightly less drainage from ulcers and drainage appears to be largely serous. Less erythematous. They do appear to be improving. Neurologic: Cranial nerves grossly intact. No focal deficits identified. Psychiatric: Normal mood and affect. Awake, alert and oriented x 3. Skin: Ulcers as above and some chronic venous stasis changes bilateral legs which are stable. No new rashes or lesions identified. ASSESSMENT AND PLAN: 1. Left lower extremity cellulitis and infected ulcers in the setting of chronic venous stasis. On antibiotics with Rocephin and Zyvox initially. Cultures are skin swab. Wounds are growing pansensitive Pseudomonas, so we will change Rocephin to Levaquin pending further recommendations from ID. Initially, there was concern that she might need debridement so General Surgery was consulted, but she does appear to be improving. General Surgery agrees that debridement is unlikely to be necessary. Continue antibiotics and local wound care. If she continues to improve, then may be stable for discharge home on p.o. antibiotics in 1 to 2 days. 2. Chronic kidney disease 4. Baseline. The patient's baseline creatinine difficult to tell with any precision, but appears to be somewhat in the 2.6 to 3.2 range. Somewhat improved today actually. Down to 2.7. Continue to monitor. 3. Coronary artery disease. Restarted patient's home aspirin. Monitor. 4. Hyperlipidemia, continue statin. 5. Chronic hep C, aware. 6. Chronic obstructive pulmonary disease. No sign of exacerbation at this time. Monitor. 7. Non gap metabolic acidosis. May be fluid related. Patient has adequate p.o. intake. Will stop intravenous fluids and monitor.
[2018-10-07] MEDS: DILAUDID IV PRN (16:51)
[2018-10-07] MEDS: NICODERM PATCH TD PRN (16:51)
[2018-10-08] MEDS: HEPARIN SUBQ SCH ×2 (00:38→11:24)
[2018-10-08] MEDS: DILAUDID IV PRN ×2 (04:51→14:49)
[2018-10-08 06:20] LABS: BASO# 0.01 X1000 (0.0-0.2); BASO% 0.2 % (0.0-0.8); EOS# 0.15 X1000 (0.0-0.7); EOS% 3.6 % (0.0-10.0); HEMATOCRIT 33.8 % (37.0-47.0); HEMOGLOBIN 10.2 g/dL (12.0-16.0); LYMPH# 0.77 X1000 (1.2-3.4); LYMPH% 18.2 % (20.5-51.1); MCH 26.4 PG (27-31); MCHC 30.2 g/dL (33-37); MCV 87.6 FL (81-99); MONO# 0.31 X1000 (0.11-0.59); MONO% 7.3 % (1.7-9.3); MPV 10.3 FL (7.4-10.4); NEUT# 2.98 X1000 (1.4-6.5); NEUT% 70.7 % (42.2-75.2); PLT 135 X1000 (130-400); RBC 3.86 XMIL (4.2-5.4); RDW 19.8 % (11.5-14.5); WBC 4.22 X1000 (4.8-10.8)
[2018-10-08 06:51] LABS: CALCIUM 7.8 mg/dL (8.8-10.2); POTASSIUM 4.6 mmol/L (3.5-5.1)
[2018-10-08 07:45] VITALS: BP 142/63
[2018-10-08] MEDS: METHADONE PO SCH (09:41)
[2018-10-08] MEDS: CELEXA PO SCH (09:41)
[2018-10-08] MEDS: APRESOLINE PO SCH ×2 (09:42→13:26)
[2018-10-08] MEDS: ZYVOX PO SCH (09:42)
[2018-10-08] MEDS: CATAPRES PO SCH ×2 (09:42→13:26)
[2018-10-08] MEDS: ASPIRIN PO SCH (09:42)
[2018-10-08] MEDS ORDERED: LEVAQUIN PO SCH ×2 (11:00)
--- NOTE | 2018-10-08 11:17 | EKG Report ---
Test Performed on : 10/08/2018 11:05:18 AM Test Reason : QT interval prolongation Blood Pressure : / mmHG Vent. Rate : 085 BPM Atrial Rate : 085 BPM P-R Int : 122 ms QRS Dur : 102 ms QT Int : 424 ms P-R-T Axes : 056 017 029 degrees QTc Int : 504 ms Normal sinus rhythm. Prolonged QT Abnormal ECG When compared with ECG of 03-AUG-2018 18:36, (Unconfirmed) No significant change was found Confirmed by Jarvis LUNA, Sal Lal ([id number]) on 10/09/2018 10:01:42 AM
--- NOTE | 2018-10-08 14:25 | CARDIOLOGY CONSULTATION ---
DATE: 10/08/2018 CHIEF COMPLAINT: On presentation, current history of lower extremity redness and pain. HISTORY OF PRESENT ILLNESS: Ms. Mead is a 58-year-old, white female, with a history of COPD, hyperlipidemia, chronic pain, hepatitis C. She presented for evaluation of left leg pain. She was treated as an outpatient for cellulitis of the left lower extremity and apparently had a failure of this. She has had cultures of her left leg performed demonstrating Pseudomonas. She has been placed on antibiotics per Dr. Davis including Levaquin. The patient does not report any previous cardiac history. She does smoke. PAST MEDICAL HISTORY: 1. Significant for hypertension. 2. Chronic pain with IV drug use. Now on methadone. 3. Depression. SOCIAL HISTORY: Smokes about a pack a day. No current alcohol or illicit drug use. FAMILY HISTORY: Significant for hypertension. REVIEW OF SYSTEMS: A 10 system review of systems is negative except for those things mentioned in HPI. PHYSICAL EXAMINATION: VITAL SIGNS: She is afebrile. Heart rate is 70, blood pressure 142/63. General: She is in no acute distress. HEENT: Oropharynx is moist. Poor dentition. Eye examination is pink conjunctivae. White sclerae. Neck: Examination shows no obvious thyromegaly or thyroid tenderness. Cardiovascular: She sounds to be in a regular rate and rhythm. She has no obvious murmurs. She has no S3. She has no lower extremity edema. Chest: Exam is clear bilaterally. She has no increased work of breathing. Abdomen: Soft, nontender, nondistended. She has no obvious organomegaly. Skin Exam: Warm and dry throughout without any rashes. Left lower extremity was not examined as it was currently bandaged. Neurological: She is moving all extremities well. She has no lateralizing deficits. Psychiatric: Alert, oriented, pleasant. Normal mood and affect. PERTINENT DATA: Her EKG from the at 11:05 was reviewed demonstrating a QTc of 504 sinus rhythm. Previous EKG identified in August 2016 shows a QTc of 509, normal sinus rhythm. She had a lower extremity x-ray demonstrating nonspecific findings. Her lab data shows white count of 4.2, hematocrit of 33. Her platelet count is 135. Her sodium is 141, potassium 4.6, BUN 28, creatinine is 3.0. ASSESSMENT: Ms. Mead is a 58-year-old female, who seems to carry a baseline long QT. PLAN: Patient has taken Levaquin before without any issues. Her QT interval at this point, is identical to what it was back in August 2016. At that time, she was on methadone as well. She was not on Levaquin back in August 2016 per our medication records. It would seem that her QT interval has not significantly changed, despite the addition of Levaquin to her baseline medications. Presently, I will discontinue her Zofran and it would seem reasonable that she could take Levaquin with her concurrent issues. I will check a magnesium level. If it is below 2, we will replete. cc: Ludwig Ozuna MD
[2018-10-08 14:36] LABS: ALLEN TEST YES; BE -8.6 mmoll (-3.0-3.0); BLOOD TYPE ARTERIAL; HCO3-(ACT) 18.1 mmoll (20.0-26.0); METHB 1.8 % (0.0-1.5); MODALITY ROOM AIR; O2(CT) 13.2 mL/dL (15.0-23.0); O2HB 91.5 % (95.0-99.0); PCO2(98.6) 40 mmHg (35-45); PO2(98.6) 67 mmHg (60-100); SAMPLE BLOOD; THB 10.2 g/dL (11.5-17.4); pH(98.6) 7.26 (7.35-7.45)
--- NOTE | 2018-10-08 14:39 | INFECTIOUS DISEASE PROGRESS NO ---
DATE: 10/08/2018 PRESENT ILLNESS: The patient has a Pseudomonas cellulitis involving the left leg and to a much lesser extent the right leg. She is predisposed to this because she has chronic bilateral leg edema and she often refuses to elevate her legs because she says it hurts her. MEDICATIONS: The patient is on Levaquin. I have decreased the dose to 250 mg daily because of the patient's elevated creatinine. PHYSICAL EXAMINATION: Vital Signs: Temperature is 98.1 degrees, pulse 70, respirations 19, blood pressure 142/63. General: This is an obese, middle-aged female. She is in no acute distress. Head/eyes/ears/nose/throat: She can hear my spoken words and see near objects. She does not have any drainage coming from her ears or her nose. She does not have any white patches on her tongue. Neck: She does not have any pain in her neck when she moves her head. Lungs: Clear to auscultation. Cardiovascular: Heart rate is regular. Abdomen: Soft and nontender. Extremities: Both legs are less edematous and erythematous than they were when the patient came in. Also, the patient's wounds are do not have any purulence on them and they appear to be getting smaller. Neurologic: The patient is alert she can move her extremities. There is no tremor. LAB AND X-RAY: There is no new radiographic study. CBC shows a white count of 4220, hemoglobin 10.2, platelet count 135,000, creatinine is 3. GFR is 16. There was no new radiographic study. ASSESSMENT AND PLAN: The plan is to send the patient home on dressings for her leg, which Dr. Boggs will write for. I have electronically sent a prescription for Levaquin 250 mg daily to the patient's pharmacy, which is [facility]. I have also stressed to the patient the patient the importance of elevating her leg as much as possible. Some of the side effects of Levaquin including rash, diarrhea, seizures, and tendon rupture and QT prolongation have been explained the patient who agrees with treatment. Patient will have an appointment in my office in 10 days. I am going to get an EKG to see about her QT interval. COMORBIDITIES: She is obese and has leg edema. cc: Yasmany Davis MD
--- NOTE | 2018-10-08 15:05 | PROGRESS NOTE ---
DATE: 10/08/2018 INTERVAL HISTORY: The patient's lower extremity discomfort continues to improve slowly. Still some difficulty with the left leg. Drainage still present, but also slightly decreased from admission. No acute events overnight and no other complaints. REVIEW OF SYSTEMS: Twelve-point review of systems negative except as per interval history. LABS: WBC 4.2, hemoglobin 10.2, hematocrit 33.8, platelets 135. Sodium 141, potassium 4.6, bicarb is 16, BUN 28, creatinine 3, glucose 86. PHYSICAL EXAMINATION: Vitals: T-max 98.4, pulse 70, respirations 19, blood pressure 142/63, O2 saturation is 93% on room air. General: No acute distress. Vitals: As above. HEENT: Normocephalic, atraumatic. Moist mucous membranes noted. Neck: No cervical adenopathy. Cardiovascular: Regular rate and rhythm. No murmurs noted. Pulmonary: Clear to auscultation bilaterally. No wheezes, rales, or rhonchi. Abdomen: Soft, nontender, nondistended. Bowel sounds positive. Extremities: Peripheral pulses still decreased, but present. Left lower leg bandaged. Numerous ulcers still with some serous drainage, but decreasing slightly. Significantly less erythematous. They do appear to be improving although slowly. Neurologic: Cranial nerves grossly intact. No focal deficits identified. Psychiatric: Normal mood and affect. Awake, alert, oriented x3. Skin: Ulcers as above and chronic venous stasis changes of both legs which are stable. No new lesions identified. ASSESSMENT AND PLAN: 1. Left lower extremity cellulitis and infected ulcers in the setting of chronic venous stasis on antibiotics. Initially treated with Rocephin and Zyvox. Skin cultures grew Pseudomonas, so Rocephin was changed to Levaquin pending further recommendations from Infectious Disease. Initially, there was some concern she might need debridement so Surgery was consulted, but she has been improving and General surgery does not think any debridement necessary. Continue antibiotics and local wound care. If she continues to improve, then we will await final Infectious Disease recommendations and possible discharge tomorrow. Does appear to have some difficulty moving the left leg so will ask Physical Therapy to evaluate, make sure she does not need some home health. 2. Chronic kidney disease 4. Patient's creatinine appears to fluctuate quite a bit from 2.6 to 3.2. Some up and down, but largely stable during the hospitalization. 3.0 today. Continue to monitor. 3. Coronary artery disease. Continue home aspirin and monitor. 4. Hyperlipidemia, continue statin. 5. Chronic hepatitis C, aware. 6. Chronic obstructive pulmonary disease. No sign of exacerbation at this time. Monitor. Nebulizers as needed. 7. Non gap metabolic acidosis. Initially thought it might be due to IV fluids, but did not appear to have improved since discontinuing fluids. Will check ABG and if significantly acidemic, then we will consider giving her some bicarb. [facility] C[facility]
--- NOTE | 2018-10-13 06:10 | DISCHARGE SUMMARY ---
ADMISSION DATE: 10/04/2018 DISCHARGE DATE: 10/08/2018 DISCHARGE DIAGNOSES: 1. Left lower extremity cellulitis. 2. Left lower extremity infected ulcers. 3. Bilateral chronic venous stasis dermatitis. 4. Chronic kidney disease 4. 5. Coronary artery disease. 6. Hyperlipidemia. 7. Chronic hepatitis C. 8. Chronic obstructive pulmonary disease. 9. Morbid obesity. HOSPITAL COURSE: The patient is a 58-year-old female with history of coronary artery disease, COPD, hyperlipidemia, chronic hepatitis C, previous history of intravenous drug abuse, on chronic methadone, hyperlipidemia, hyperlipidemia, chronic venous stasis. The patient presented to the ER complaining of worsening left lower extremity erythema, pain, drainage, as well as subjective fever and chills for the past 2 days. Initial evaluation in the ER was significant for extensive left lower extremity ulcerations of lower leg as well as diffuse erythema, some purulent drainage. Labs were largely unremarkable, including her stable CKD 4 with creatinine 3.1. Minimal anemia. Patient was admitted for further treatment of extensive cellulitis in infected leg ulcers. Patient had grown out MRSA wounds in the past, so she was started on Zyvox, and also put on Rocephin. There was initial concern that she might have to have debridement, so General Surgery was consulted, but her cellulitis and wounds improved significantly and rapidly with IV antibiotics, so no debridement was necessary. Pain improved along with infection of her wounds. We attempted to evaluate the patient for peripheral arterial disease, but patient refused. Once the patient's infection appeared to be significantly improved and blood cultures remained negative, she was transitioned to p.o. antibiotics with Levaquin as her wound cultures grew out pansensitive Pseudomonas. She was discharged home to continue course of treatment with that, and follow up with PCP and Infectious Disease. DISCHARGE VITALS: Temperature 98.1 degrees, pulse 70, respirations 19, blood pressure 142/63, O2 saturation 96% on room air. DISCHARGE DIET: Low salt. DISCHARGE MEDICATIONS: Hydralazine 50 mg p.o. t.i.d., Celexa 20 mg p.o. daily, clonidine 0.1 mg p.o. t.i.d., Lasix 40 mg p.o. b.i.d., methadone 150 mg p.o. daily, Levaquin 250 mg p.o. daily, nicotine patch 20 mg daily. FOLLOWUP AND PLAN: Patient discharging home on a course of oral Levaquin to treat her cellulitis and infected ulcers. Patient to follow up with PCP, Wound Care, and Infectious Disease. Patient to return to care if wounds worsen or further signs of infection develops. TIME SPENT: Greater than 30 minutes spent arranging discharge and counseling patient. BREANNA
== END 2018-10-08 15:44 | disposition home or self-care (01) | DRG 603 ==
LOC: ED 18:02 → SUATTDRO 22:21 → 4N 22:21
PROVIDERS: ATTEND Internal Medicine
CPT/HCPCS: 71010; 71045; 73590; 80048; 80053; 81001; 82550; 82805; 83605; 83735; 84484; 85025; 85610; 85730; 87040; 87070; 87077; 87088; 87186; 93005; 93010; 93923; 96365; 96366; 96368; 96375; 96376; 97116; 97162; 99285; A9270; J0696; J1170; J1644; J1956; J2270; J2405; J3370; J7030; S0109